=== PATIENT | male | born 1955 | race Asian ===

== ENCOUNTER 2016-03-11 18:36 | Inpatient (IN) | payer MEDICAID, OTHER ==
[~2016-03-11] VITALS: Ht 167.6 cm; Wt 74.2 kg
[2016-03-11] MEDS ORDERED: SOD CHLORIDE 0.9% 1,000 ML IV STA (18:51)
[2016-03-11] MEDS ORDERED: ASPIRIN 325 MG TAB PO STA (18:51)
[2016-03-11] MEDS ORDERED: AMIODARONE 900 MG in DEXTROSE 5% 482 ML IV SCH (19:00)
[2016-03-11] MEDS ORDERED: AMIODARONE 150MG/D5W BOLUS 100 ML IV ONE (19:00)
[2016-03-11 19:17] LABS: BASOPHILS % 0.4 % (0.0-2.0); EOSINOPHILS % 0.4 % (0.0-7.0); HEMATOCRIT 42.8 % (42.0-52.0); HEMOGLOBIN 14.7 g/dl (14.0-18.0); LYMPHOCYTES # 1.9 10^3/ul (0.8-2.9); LYMPHOCYTES % 33.6 % (15.0-51.0); MEAN CORPUSCULAR HEMOGLOBIN 30.9 pg (29.0-33.0); MEAN CORPUSCULAR HGB CONC 34.3 g/dl (32.0-37.0); MEAN PLATELET VOLUME 8.7 fl (7.4-10.4); MONOCYTE # 0.6 10^3/ul (0.3-0.9); MONOCYTES % 10.2 % (0.0-11.0); NEUTROPHIL # 3.1 10^3/ul (1.6-7.5); NEUTROPHILS % 55.4 % (39.0-77.0); PLATELET COUNT 140 10^3/UL (140-440); RED BLOOD COUNT 4.75 10^6/ul (4.70-6.10); UNCORRECTED WBC 5.7 10^3/ul (4.8-10.8); WHITE BLOOD COUNT 5.7 10^3/ul (4.8-10.8)
[2016-03-11 19:18] LABS: CONDITION 1
[2016-03-11 19:26] LABS: INR 0.95; PROTIME 12.7 Sec (12.2-14.2)
--- NOTE | 2016-03-11 19:28 | RADRPT ---
PROCEDURE: XR Chest. CLINICAL INDICATION: Chest pain. TECHNIQUE: AP portable views of the chest were obtained. COMPARISON: None available FINDINGS: There is mild cardiomegaly. There is mild atherosclerotic calcification of the thoracic aorta. The re is mild prominence of the central pulmonary vasculature. The peripheral vascular markings are di stinct. The lungs are clear without consolidation, mass or nodule. No signs of pleural fluid or pneu mothorax are seen. The osseous structures and soft tissues are unremarkable. IMPRESSION: 1. No evidence for active cardiopulmonary disease. 2. Mild cardiomegaly with central pulmonary vascular congestion. No evidence of interstitial pulmo nary edema. 3. Mild atherosclerotic calcification of the thoracic aorta. RPTAT: HGAS .Gumaro Fletcher MD, Date Time Electronically viewed and signed by .Gumaro Fletcher MD, on 03/11/2016 19:27 .S/
[2016-03-11 19:34] LABS: CREATININE 0.7 mg/dl (0.61-1.24)
[2016-03-11 19:35] LABS: CALCIUM 8.1 mg/dl (8.4-10.2)
[2016-03-11 19:46] LABS: TROPONIN-I 0.016 ng/ml (0.00-0.12)
[2016-03-11 19:51] LABS: PARTIAL THROMBOPLASTIN TIME 31.7 Sec (25.0-35.0)
--- NOTE | 2016-03-11 20:10 | ERA ---
ER Documentation Chief Complaint Date/Time DATE: 03/11/16 TIME: 20:07 Chief Complaint chest pain, SOB HPI Patient is a 60-year-old male who presents complaining of chest pain with shortness of breath. He states he has also been coughing and taking some over- the-counter cold medication which has not helped. He denies any fever or sputum production. He has noted that his heart feels like it is racing. That sensation started today and has been off and on all day long. Nothing seems to help this or make it worse. He denies any peripheral edema or calf pain. He denies any hemoptysis or sputum production, rhinorrhea or sore throat, chest trauma, otalgia, nausea, vomiting, or diarrhea. He has not been in contact with anyone who is ill. And he has not traveled out of the country. ROS All systems reviewed and are negative except as per history of present illness. Allergies Allergies: Coded Allergies: No Known Allergy (Unverified , 03/11/16) PMhx/Soc History of Surgery: Yes (R breast cyst biopsy) Anesthesia Reaction: No Hx Neurological Disorder: No Hx Respiratory Disorders: No Hx Cardiac Disorders: No Hx Psychiatric Problems: No Hx Miscellaneous Medical Probl: Yes (DM) Hx Alcohol Use: No Hx Substance Use: No Hx Tobacco Use: No Smoking Status: Never smoker FmHx Family History: No diabetes Physical Exam Vitals Vital Signs Date Time Temp Pulse Resp B/P Pulse Ox O2 Delivery O2 Flow Rate FiO2 03/11/16 19:00 Nasal Cannula 2 03/11/16 19:00 98.8 149 18 119/106 100 Nasal Cannula 2.0 03/11/16 18:46 99.0 152 18 118/100 100 Physical Exam Const: [] Head: Atraumatic Eyes: Normal Conjunctiva ENT: Normal External Ears, Nose and Mouth. Neck: Full range of motion..~ No meningismus. Resp: Clear to auscultation bilaterally Cardio: Regular rate and rhythm, no murmurs Abd: Soft, non tender, non distended. Normal bowel sounds Skin: No petechiae or rashes Back: No midline or flank tenderness Ext: No cyanosis, or edema Neur: Awake and alert Psych: Normal Mood and Affect Result Diagram: 03/11/16184903/11/161849 Results 24 hrs Laboratory Tests Test 03/11/16 18:49 03/11/16 18:50 Bedside Glucose 254mg/dL Activated Partial Thromboplast Time 31.7Sec Anion Gap 14 Basophils # 0.010^3/ul Basophils % 0.4% Blood Urea Nitrogen 18mg/dl Calcium Level 8.1mg/dl Carbon Dioxide Level 27mmol/L Chloride Level 100mmol/L Creatinine 0.70mg/dl Eosinophils # 0.010^3/ul Eosinophils % 0.4% Glucose Level 257mg/dl Hematocrit 42.8% Hemoglobin 14.7g/dl INR International Normalized Ratio 0.95 Lymphocytes # 1.910^3/ul Lymphocytes % 33.6% Mean Corpuscular Hemoglobin 30.9pg Mean Corpuscular Hemoglobin Concent 34.3g/dl Mean Corpuscular Volume 90.0fl Mean Platelet Volume 8.7fl Monocytes # 0.610^3/ul Monocytes % 10.2% Neutrophils # 3.110^3/ul Neutrophils % 55.4% Nucleated Red Blood Cells # 0.010^3/ul Nucleated Red Blood Cells % 0.0/100WBC Platelet Count 67760^3/UL Potassium Level 4.0mmol/L Prothrombin Time 12.7Sec Prothrombin Time Ratio 1.0 Red Blood Count 4.7510^6/ul Red Cell Distribution Width 13.0% Sodium Level 137mmol/L Troponin I 0.016ng/ml White Blood Count 5.710^3/ul Current Medications Medications (Trade) Dose Ordered Sig/Praveena Route PRN Reason Start Time Stop Time Status Last Admin Dose Admin Sodium Chloride (NS) 1,000 ml @ 1,000 mls/hr Q1H STAT IV 03/11/16 18:51 03/11/16 19:50 DC 03/11/16 19:03 Aspirin 325 mg 325 mg ONCE STAT PO 03/11/16 18:51 03/11/16 18:54 DC 03/11/16 19:03 Amiodarone HCl 100 ml @ 600 mls/hr ONCE ONCE IV 03/11/16 19:00 03/11/16 19:09 DC 03/11/16 18:57 Amiodarone HCl/ Dextrose (Cordarone Iv/ D5W) 500 ml @ 0 mls/hr Q0M IV 03/11/16 19:00 03/12/16 18:59 03/11/16 20:00 Procedures/MDM EKG: Rate/Rhythm: Atrial fibrillation with a rapid ventricular response of approximately 150 bpm QRS, ST, T-waves: No changes consistent w/ acute ischemia Impression: No evidence of ischemia 2008: Patient has received the bolus of amiodarone. He is currently being placed on a drip. He remains hemodynamically stable however his rate at this time is ranging between 120-140. I have a consult to the hospitalist for admission. Departure Diagnosis: Primary Impression: Atrial fibrillation with tachycardic ventricular rate Additional Impressions: Chest pain Qualified Code: R07.2 - Precordial pain Diabetes Qualified Code: E11.59 - Type 2 diabetes mellitus with other circulatory complication, unspecified terminal system operator insulin use status Condition: KIMANI Leigh Mar 11, 2016 20:10
[2016-03-11 21:00] VITALS: TEMP 98.7
[2016-03-11] MEDS ORDERED: ZOLPIDEM 5 MG TAB PO PRN (22:30)
[2016-03-11] MEDS ORDERED: ONDANSETRON 4 MG INJ IV PRN (22:30)
[2016-03-11] MEDS ORDERED: DILTIAZEM-D5W 125MG/125ML DRIP 125 ML IV SCH (22:30)
[2016-03-11] MEDS ORDERED: DOCUSATE SODIUM 100 MG CAP PO PRN (22:30)
[2016-03-11] MEDS ORDERED: morphine 2 MG INJ IV PRN (22:30)
[2016-03-11] MEDS ORDERED: NACL 0.9% 3 ML SYG IV SCH (22:30)
[2016-03-11] MEDS ORDERED: ACETAMINOPHEN 325 MG TAB PO PRN (22:30)
[2016-03-11] MEDS ORDERED: DILTIAZEM 25 MG INJ IV ONE (22:30)
[2016-03-11] MEDS ORDERED: HYDROCODONE/APAP (5/325) TAB PO PRN (22:30)
[2016-03-11] MEDS ORDERED: GLUCAGON 1 MG INJ IM PRN (23:00)
[2016-03-11] MEDS ORDERED: DEXTROSE 50% 50 ML SYRINGE IV PRN ×2 (23:00)
[2016-03-11] MEDS ORDERED: GLUCOSE GEL 15 GRAM TUBE PO PRN ×2 (23:00)
[2016-03-11] MEDS ORDERED: GLUCOSE GEL 15 GRAM TUBE BUCCAL PRN (23:00)
[2016-03-11 23:31] VITALS: Ht 167.6 cm; Wt 74.2 kg
[2016-03-11] MEDS: PROMETHAZINE/CODEINE 5ML CUP PO PRN (23:40)
[2016-03-11 23:43] VITALS: BP 122/69; PULSE 97; RESP 18
[2016-03-12] VITALS (11 sets, daily range): BP systolic 105–129; BP diastolic 68–78; PULSE 85–123; RESP 17–85
[2016-03-12 01:28] LABS: TROPONIN-I 0.018 ng/ml (0.00-0.12)
[2016-03-12 01:40] LABS: CK-MB 2.73 ng/ml (0.0-2.4)
[2016-03-12] MEDS: PROMETHAZINE/CODEINE 5ML CUP PO PRN ×3 (06:12→18:05)
[2016-03-12 06:17] LABS: BASOPHILS % 0.6 % (0.0-2.0); EOSINOPHILS % 0.3 % (0.0-7.0); HEMATOCRIT 39.2 % (42.0-52.0); HEMOGLOBIN 13.5 g/dl (14.0-18.0); LYMPHOCYTES # 1.5 10^3/ul (0.8-2.9); LYMPHOCYTES % 28.9 % (15.0-51.0); MEAN CORPUSCULAR HEMOGLOBIN 31.2 pg (29.0-33.0); MEAN CORPUSCULAR HGB CONC 34.4 g/dl (32.0-37.0); MEAN CORPUSCULAR VOLUME 90.7 fl (82.0-101.0); MEAN PLATELET VOLUME 8.7 fl (7.4-10.4); MONOCYTE # 0.6 10^3/ul (0.3-0.9); MONOCYTES % 11.9 % (0.0-11.0); NEUTROPHILS % 58.3 % (39.0-77.0); PLATELET COUNT 123 10^3/UL (140-440); RED BLOOD COUNT 4.32 10^6/ul (4.70-6.10); RED CELL DISTRIBUTION WIDTH 13.3 % (11.5-14.5); UNCORRECTED WBC 5.2 10^3/ul (4.8-10.8); WHITE BLOOD COUNT 5.2 10^3/ul (4.8-10.8)
[2016-03-12 06:34] LABS: CONDITION 1
--- NOTE | 2016-03-12 06:34 | HP ---
DATE OF ADMISSION: 03/11/2016 TIME: 9:00 p.m. CHIEF COMPLAINT: Chest pain with sense of palpitations. HISTORY OF PRESENT ILLNESS: The patient is a 60-year-old male with history of non-insulin dependent diabetes, otherwise no significant medical history. The patient presents with 6 months of feeling his heart racing and sense of palpitations, but it has never been that severe and typically resolves on its own. The patient states that today he started to notice severe chest discomfort and palpita tions as well as shortness of breath. The patient has been coughing for the past week now. He has taken some more sack-sli-ankeepp home cold medications which have not helped. He does report that o kyler the past 2 days, he does have some blood-tinged sputum. He denies any weight loss, night sweats and he has been vaccinated for TB in the past. The patient has no other complaints at this time. He states he has never been diagnosed with atrial fibrillation in the past. In the ED, the patient was noted to be in atrial fibrillation with RVR and was started on amiodarone drip and continues to complain of cough and chest discomfort at this time. PAST MEDICAL HISTORY: Cgi-gwefnjk-vfahxczrl diabetes. PAST SURGICAL HISTORY: He says he had a biopsy in the past. HOME MEDICATIONS: Diabetic medications, but it is unclear what type. ALLERGIES: NO KNOWN DRUG ALLERGIES. FAMILY HISTORY: Diabetes. SOCIAL HISTORY: Denies any alcohol, tobacco, or drug abuse. REVIEW OF SYSTEMS: A 12-point review of systems negative except as in the HPI. PHYSICAL EXAMINATION: VITAL SIGNS: Temperature is 98.7, pulse 107, respiratory rate is 24, BP is 100/78, saturation 100% on 2 liters. GENERAL: No acute distress, alert and oriented. HEENT: Normocephalic, atraumatic. LUNGS: Clear to auscultation. CARDIOVASCULAR: Tachycardic. ABDOMEN: Nondistended, nontender, soft. EXTREMITIES: No clubbing, cyanosis, or edema. LABORATORIES: CBC within normal limits. Chemistry within normal limits. Sugars slightly elevated to 254 ____57. Troponins are negative. INR is 0.98. DIAGNOSTICS: Chest x-ray shows no evidence of active disease. There is no central pulmonary vascul ar congestion, no evidence of interstitial pulmonary edema, ____atherosclerosis of the thoracic aor ta. EKG shows atrial fibrillation with RVR, no changes consistent with acute ischemia. ASSESSMENT AND PLAN: 1. Atrial fibrillation with rapid ventricular response. We will discontinue amiodarone and start t he patient on Cardizem. We will get a cardiology consultation. We will get a 2D echo. If the patien t has persistent atrial fibrillation in the a.m., then the patient will need to be started on an ant icoagulant such as Eliquis, as well as a p.o. beta vamsi or calcium channel vamsi. For now, we will give a bolus of Cardizem and we will maintain the patient on a Cardizem drip. 2. Persistent cough with hemoptysis. The patient has no night sweats, no weight loss, no fevers. He has been coughing for the past week now. He does have some intrapulmonary vascular congestion. The patient may have some decompensated heart failure causing him to have a persistent cough and now has developed irritation in his upper airway causing blood-tinged sputum. He has been vaccinated f or TB in the past and he has no recent travel history. No other symptoms of TB. We will follow up with an echo. We will give him Lasix IV as well as a ____ test for influenza. 3. Diabetes. We will treat with subcutaneous insulin while hospitalized. We will check an A1c and lipid panel. 4. Prophylaxis. Lovenox. Dictated By: HIRAM FONTANEZ MD BS/NTS Conf#: [id number] DID#: [id number]
[2016-03-12 06:48] LABS: POTASSIUM 4.3 mmol/L (3.5-5.1)
[2016-03-12 06:50] LABS: CREATININE 0.67 mg/dl (0.61-1.24)
[2016-03-12 06:51] LABS: ALBUMIN/GLOBULIN RATIO 0.96; BILIRUBIN,INDIRECT 1.2 mg/dl (0-1.1); BILIRUBIN,TOTAL 1.2 mg/dl (0.2-1.3); CALCIUM 7.6 mg/dl (8.4-10.2); PHOSPHORUS 3.3 mg/dl (2.5-4.9); TOTAL PROTEIN 6.1 g/dl (6.1-8.1)
[2016-03-12 06:52] LABS: CHOL/HDL RATIO 8.7 RATIO; MAGNESIUM 1.8 mg/dl (1.7-2.5)
[2016-03-12 07:02] LABS: T3 UPTAKE 33.8 % (23.5-40.5)
[2016-03-12 07:11] LABS: TROPONIN-I 0.013 ng/ml (0.00-0.12)
[2016-03-12 07:13] LABS: CK-MB 2.46 ng/ml (0.0-2.4)
[2016-03-12] MEDS: INSULIN ASPART [NOVOLOG] 3 ML PEN SC SCH ×7 (08:12→20:56)
[2016-03-12] MEDS ORDERED: FUROSEMIDE 40 MG INJ IV SCH ×2 (09:00→18:00)
[2016-03-12] MEDS: ASPIRIN (EC) 81 MG TAB PO SCH (09:03)
[2016-03-12] MEDS: ENOXAPARIN 40 MG/0.4 ML SYG SC SCH (09:13)
--- NOTE | 2016-03-12 11:52 | CONS ---
Date/Time of Note Date/Time of Note DATE: 03/12/16 TIME: 11:44 Assessment/Plan Assessment/Plan Chief Complaint/Hosp Course Afib with RVR: Rates controlled now on diltiazem drip at a rate of 5. Will switch to PO and titrate off drip. His CHADSVASC is 2 and he needs correction anticoagulation but will hold of now as he may need procedures Acute diastolic vs systolic heart failure: Grossly decompensated and needs diuresis. Could be caused by the afib with RVR or triggered it. Chest pain: with risk factors, concerning that he has underlying CAD. Ruled out for FL. Will check echo. If EF is low may consider cath (inpt vs outpt). If EF normal may need noninvasive evaluation first. DM HTN HL -increase to lasix 40mg IV BID -add diltiazem 30mg PO q6h and titrate off drip (if EF is low will need to switch to coreg or bisoprolol) -continue ASA, statin -check echo -hold on anticoagulation until further information is obtained Problems: Consultation Date/Type/Reason Admit Date/Time Mar 11, 2016 at 20:23 Date of Consultation: Mar 12, 2016 Type of Consultation: Cardiology Reason for Consultation Afib with RVR Referring Provider: HIRAM FONTANEZ Hx of Present Illness 60 yo M with a h/o DM, HTN, HL, who presented with palpitations, chest pain, SOB and was found to have afib with RVR. The patient notes that over the past 3 months he has been having intermittent palpitations associated with chest pain and SOB. He also notes that he cant walk more than 10 ft without SOB and sometimes chest pain. He has been coughing as well. He notes that now he is asymptomatic after his HR improved. No prior FL or heart disease per pt. Does not smoke. No family h/o CAD per HPI Past Medical History per HPI Social History Smoking Status: Never smoker Exam/Review of Systems Vital Signs Vitals Vital Signs Date Time Temp Pulse Resp B/P Pulse Ox O2 Delivery O2 Flow Rate FiO2 03/12/16 11:38 98.1 75 18 105/74 97 03/11/16 23:45 Nasal Cannula 3.0 Intake and Output 03/11/16 03/11/16 03/12/16 15:00 23:00 07:00 Intake Total 400 ml Balance 400 ml Exam Constitutional: alert, oriented Psych: no complaints Head: atraumatic, normocephalic Neck: jvd (12cm) Respiratory: crackles/rales, diminished breath sounds, No clear to auscultation Cardiovascular: edema (trace), systolic murmur (2/6), No regular rate and rhythm Gastrointestinal: non-tender, soft Neurological: nl mental status, nl speech Results Result Diagram: 03/12/16 0531 03/12/16 0531 Results 24 hrs Laboratory Tests Test 03/11/16 18:49 03/11/16 18:50 03/12/16 00:53 03/12/16 05:31 Bedside Glucose 254 H Activated Partial Thromboplast Time 31.7 Anion Gap 14 12 B-Type Natriuretic Peptide 1340 H Basophils # 0.0 0.0 Basophils % 0.4 0.6 Blood Urea Nitrogen 18 16 Calcium Level 8.1 L 7.6 L Carbon Dioxide Level 27 28 Chloride Level 100 101 Creatinine 0.70 0.67 Eosinophils # 0.0 0.0 Eosinophils % 0.4 0.3 Glucose Level 257 H 241 H Hematocrit 42.8 39.2 L Hemoglobin 14.7 13.5 L INR International Normalized Ratio 0.95 Lymphocytes # 1.9 1.5 Lymphocytes % 33.6 28.9 Mean Corpuscular Hemoglobin 30.9 31.2 Mean Corpuscular Hemoglobin Concent 34.3 34.4 Mean Corpuscular Volume 90.0 90.7 Mean Platelet Volume 8.7 8.7 Monocytes # 0.6 0.6 Monocytes % 10.2 11.9 H Neutrophils # 3.1 3.0 Neutrophils % 55.4 58.3 Nucleated Red Blood Cells # 0.0 0.0 Nucleated Red Blood Cells % 0.0 0.0 Platelet Count 140 123 L Potassium Level 4.0 4.3 Prothrombin Time 12.7 Prothrombin Time Ratio 1.0 Red Blood Count 4.75 4.32 L Red Cell Distribution Width 13.0 13.3 Sodium Level 137 137 Troponin I 0.016 0.018 0.013 White Blood Count 5.7 5.2 Creatine Kinase 775 H 654 H Creatine Kinase Index 0.4 0.4 Creatinine Kinase MB (Mass) 2.73 H 2.46 H Alanine Aminotransferase (ALT/SGPT) 117 H Albumin 3.0 L Albumin/Globulin Ratio 0.96 Alkaline Phosphatase 101 Aspartate Amino Transf (AST/SGOT) 121 H Cholesterol Level 158 Cholesterol/HDL Ratio 8.7 Direct Bilirubin 0.00 Free Thyroxine Index 4.60 H Globulin 3.10 HDL Cholesterol 18 L Hemoglobin A1c 10.8 H Indirect Bilirubin 1.2 H LDL Cholesterol, Calculated 114 Magnesium Level 1.8 Phosphorus Level 3.3 Thyroxine (T4) 13.6 H Total Bilirubin 1.2 Total Protein 6.1 Triglycerides Level 131 Triiodothyronine (T3) Uptake 33.8 Test 03/12/16 08:04 Bedside Glucose 208 Medications Medications Current Medications Ondansetron HCl (Zofran Inj) 4 mg Q6H PRN IV NAUSEA AND/OR VOMITING; Start 03/11 at 22:30 Acetaminophen (Tylenol Tab) 650 mg Q6H PRN PO PAIN LEVEL 1-3 OR FEVER; Start at 22:30 Acetaminophen/ Hydrocodone Bitart ([place] (5/325)) 1 tab Q6H PRN PO MODERATE PAIN LEVEL 4-6; Start 03/11/16 at 22:30 Morphine Sulfate (morphine) 2 mg Q4H PRN IV SEVERE PAIN LEVEL 7-10; Start at 22:30 Docusate Sodium (Colace) 100 mg Q12H PRN PO CONSTIPATION; Start 03/11/16 at 22: 30 Zolpidem Tartrate (Ambien) 5 mg QHS PRN PO SLEEP; Start 03/11/16 at 22:30 Enoxaparin Sodium 40 mg 40 mg DAILY SC Last administered on 03/12/16 09:13; Admin Dose 40 MG; Start 03/12/16 at 09:00 Diltiazem HCl (Cardizem-D5W 125 Mg/125 ml Drip) 125 ml @ 5 mls/hr Q24H IV Last administered on 03/11/16 22:41; Admin Dose 5 MLS/HR; Start 03/11/16 at 22:30 Promethazine HCl/ Codeine (Phenergan/ Codeine) 5 ml Q4H PRN PO COUGH Last administered on 03/12/16 11:08; Admin Dose 5 ML; Start 03/11/16 at 22:30 Aspirin (Halfprin) 81 mg DAILY PO Last administered on 03/12/16 09:03; Admin Dose 81 MG; Start 03/12/16 at 09:00 Insulin Glargine (Lantus) 14 unit HS SC ; Start 03/12/16 at 21:00 Miscellaneous Information 1 ea NOTE XX ; Start 03/11/16 at 23:00 Glucose (Glutose) 15 gm Q15M PRN PO DECREASED GLUCOSE; Start 03/11/16 at 23:00 Glucose (Glutose) 22.5 gm Q15M PRN PO DECREASED GLUCOSE; Start 03/11/16 at 23:00 Dextrose (D50w Syringe) 25 ml Q15M PRN IV DECREASED GLUCOSE; Start 03/11/16 at 23:00 Dextrose (D50w Syringe) 50 ml Q15M PRN IV DECREASED GLUCOSE; Start 03/11/16 at 23:00 Glucagon (Glucagen) 1 mg Q15M PRN IM DECREASED GLUCOSE; Start 03/11/16 at 23:00 Glucose (Glutose) 15 gm Q15M PRN BUCCAL DECREASED GLUCOSE; Start 03/11/16 at 23: 00 Diltiazem HCl (Cardizem) 30 mg Q6 PO ; Start 03/12/16 at 12:00 Furosemide (Lasix) 40 mg BID IV ; Start 03/12/16 at 21:00; Status JENNIFER ALFARO Mar 12, 2016 11:52
[2016-03-12] MEDS: DILTIAZEM 30 MG TAB PO SCH ×2 (12:53→18:04)
[2016-03-12 14:46] LABS: HAAIG REFLEX REFLEX FILED
--- NOTE | 2016-03-12 14:53 | PN ---
Date/Time of Note Date/Time of Note DATE: 03/12/16 TIME: 14:47 Assessment/Plan VTE Prophylaxis VTE Prophylaxis Intervention: LMWH Lines/Catheters IV Catheter Type (from [facility]): Peripheral IV Assessment/Plan Chief Complaint/Hosp Course Assessment and plan 1. Atrial fibrillation with rapid ventricular response. Patient currently on Cardizem drip. Cardiologists following. Awaiting echocardiogram results. Continue on beta vamsi and calcium channel vamsi. 2. Reported cough with hemoptysis. No further reports of hemoptysis. Continue on antitussives as needed. 3. type 2 diabetes. A1c is pending. Continue on insulin regimen for now. DVT prophylaxis: Lovenox Disposition and plan: Continue on Cardizem drip. Transition to oral per cardiology. Continue telemetry monitoring. Discharge him when medically stable and cleared by consultants Discussed plan of care with Problems: Subjective 24 Hr Interval Summary Free Text/Dictation Comfortable at this time. No apparent distress Exam/Review of Systems Vital Signs Vitals Vital Signs Date Time Temp Pulse Resp B/P Pulse Ox O2 Delivery O2 Flow Rate FiO2 03/12/16 12:18 116 03/12/16 11:38 98.1 18 105/74 97 03/12/16 08:00 Nasal Cannula 2.0 Intake and Output 03/11/16 03/11/16 03/12/16 15:00 23:00 07:00 Intake Total 400 ml Balance 400 ml Exam General: No acute signs or symptoms of distress Eyes: pupils equal round, Anicteric sclera Neck: Supple nontender, no JVD Cardiac: irregular rhythm Pulmonary: No coarse rhonchi or breathing auscultated GI: Abdomen soft nontender nondistended, bowel sounds active Extremities: No edema bilateral lower extremities Skin: Clean dry and intact Neurologic: Alert to person place and time and situation Results Result Diagram: 03/12/16 0531 03/12/16 0531 Results 24 hrs Laboratory Tests Test 03/11/16 18:49 03/11/16 18:50 03/12/16 00:53 03/12/16 05:31 Bedside Glucose 254 H Activated Partial Thromboplast Time 31.7 Anion Gap 14 12 B-Type Natriuretic Peptide 1340 H Basophils # 0.0 0.0 Basophils % 0.4 0.6 Blood Urea Nitrogen 18 16 Calcium Level 8.1 L 7.6 L Carbon Dioxide Level 27 28 Chloride Level 100 101 Creatinine 0.70 0.67 Eosinophils # 0.0 0.0 Eosinophils % 0.4 0.3 Glucose Level 257 H 241 H Hematocrit 42.8 39.2 L Hemoglobin 14.7 13.5 L INR International Normalized Ratio 0.95 Lymphocytes # 1.9 1.5 Lymphocytes % 33.6 28.9 Mean Corpuscular Hemoglobin 30.9 31.2 Mean Corpuscular Hemoglobin Concent 34.3 34.4 Mean Corpuscular Volume 90.0 90.7 Mean Platelet Volume 8.7 8.7 Monocytes # 0.6 0.6 Monocytes % 10.2 11.9 H Neutrophils # 3.1 3.0 Neutrophils % 55.4 58.3 Nucleated Red Blood Cells # 0.0 0.0 Nucleated Red Blood Cells % 0.0 0.0 Platelet Count 140 123 L Potassium Level 4.0 4.3 Prothrombin Time 12.7 Prothrombin Time Ratio 1.0 Red Blood Count 4.75 4.32 L Red Cell Distribution Width 13.0 13.3 Sodium Level 137 137 Troponin I 0.016 0.018 0.013 White Blood Count 5.7 5.2 Creatine Kinase 775 H 654 H Creatine Kinase Index 0.4 0.4 Creatinine Kinase MB (Mass) 2.73 H 2.46 H Alanine Aminotransferase (ALT/SGPT) 117 H Albumin 3.0 L Albumin/Globulin Ratio 0.96 Alkaline Phosphatase 101 Aspartate Amino Transf (AST/SGOT) 121 H Cholesterol Level 158 Cholesterol/HDL Ratio 8.7 Direct Bilirubin 0.00 Free Thyroxine Index 4.60 H Globulin 3.10 HDL Cholesterol 18 L Hemoglobin A1c 10.8 H Indirect Bilirubin 1.2 H LDL Cholesterol, Calculated 114 Magnesium Level 1.8 Phosphorus Level 3.3 Thyroxine (T4) 13.6 H Total Bilirubin 1.2 Total Protein 6.1 Triglycerides Level 131 Triiodothyronine (T3) Uptake 33.8 Test 03/12/16 08:04 03/12/16 12:30 03/12/16 14:35 Bedside Glucose 208 215 Hepatitis B Core Total Antibody Pending Hepatitis B Surface Antigen Pending Hepatitis C Antibody Pending Medications Medications Current Medications Ondansetron HCl (Zofran Inj) 4 mg Q6H PRN IV NAUSEA AND/OR VOMITING; Start 03/11 at 22:30 Acetaminophen (Tylenol Tab) 650 mg Q6H PRN PO PAIN LEVEL 1-3 OR FEVER; Start at 22:30 Acetaminophen/ Hydrocodone Bitart ([place] (5/325)) 1 tab Q6H PRN PO MODERATE PAIN LEVEL 4-6; Start 03/11/16 at 22:30 Morphine Sulfate (morphine) 2 mg Q4H PRN IV SEVERE PAIN LEVEL 7-10; Start at 22:30 Docusate Sodium (Colace) 100 mg Q12H PRN PO CONSTIPATION; Start 03/11/16 at 22: 30 Zolpidem Tartrate (Ambien) 5 mg QHS PRN PO SLEEP; Start 03/11/16 at 22:30 Enoxaparin Sodium 40 mg 40 mg DAILY SC Last administered on 03/12/16 09:13; Admin Dose 40 MG; Start 03/12/16 at 09:00 Diltiazem HCl (Cardizem-D5W 125 Mg/125 ml Drip) 125 ml @ 5 mls/hr Q24H IV Last administered on 03/11/16 22:41; Admin Dose 5 MLS/HR; Start 03/11/16 at 22:30 Promethazine HCl/ Codeine (Phenergan/ Codeine) 5 ml Q4H PRN PO COUGH Last administered on 03/12/16 11:08; Admin Dose 5 ML; Start 03/11/16 at 22:30 Aspirin (Halfprin) 81 mg DAILY PO Last administered on 03/12/16 09:03; Admin Dose 81 MG; Start 03/12/16 at 09:00 Miscellaneous Information 1 ea NOTE XX ; Start 03/11/16 at 23:00 Glucose (Glutose) 15 gm Q15M PRN PO DECREASED GLUCOSE; Start 03/11/16 at 23:00 Glucose (Glutose) 22.5 gm Q15M PRN PO DECREASED GLUCOSE; Start 03/11/16 at 23:00 Dextrose (D50w Syringe) 25 ml Q15M PRN IV DECREASED GLUCOSE; Start 03/11/16 at 23:00 Dextrose (D50w Syringe) 50 ml Q15M PRN IV DECREASED GLUCOSE; Start 03/11/16 at 23:00 Glucagon (Glucagen) 1 mg Q15M PRN IM DECREASED GLUCOSE; Start 03/11/16 at 23:00 Glucose (Glutose) 15 gm Q15M PRN BUCCAL DECREASED GLUCOSE; Start 03/11/16 at 23: 00 Diltiazem HCl (Cardizem) 30 mg Q6 PO Last administered on 03/12/16t 12:53; Admin Dose 30 MG; Start 03/12/16 at 12:00 Insulin Glargine (Lantus) 20 unit HS SC ; Start 03/12/16 at 21:00 VADIM GRAVES Mar 12, 2016 14:53
[2016-03-12 17:28] LABS: HEPATITIS B CORE ANTIBODY NEGATIVE (NEGATIVE)
[2016-03-12] MEDS: FUROSEMIDE 40 MG INJ IV SCH (20:53)
[2016-03-12] MEDS: INSULIN GLARGINE [LANtus] 3 ML PEN SC SCH (20:54)
[2016-03-12] MEDS ORDERED: INSULIN GLARGINE [LANtus] 3 ML PEN SC SCH (21:00)
[2016-03-13] VITALS (16 sets, daily range): BP systolic 96–122; BP diastolic 64–82; PULSE 78–119; RESP 16–20
[2016-03-13] MEDS: DILTIAZEM 30 MG TAB PO SCH ×4 (00:30→17:39)
[2016-03-13] MEDS: PROMETHAZINE/CODEINE 5ML CUP PO PRN ×3 (05:39→20:56)
[2016-03-13] MEDS: FUROSEMIDE 40 MG INJ IV SCH ×2 (05:39→18:23)
[2016-03-13 06:13] LABS: BASOPHILS % 0.5 % (0.0-2.0); EOSINOPHILS % 0.3 % (0.0-7.0); HEMATOCRIT 42.2 % (42.0-52.0); HEMOGLOBIN 14.5 g/dl (14.0-18.0); LYMPHOCYTES # 2.1 10^3/ul (0.8-2.9); LYMPHOCYTES % 25.6 % (15.0-51.0); MEAN CORPUSCULAR HEMOGLOBIN 31.2 pg (29.0-33.0); MEAN CORPUSCULAR HGB CONC 34.3 g/dl (32.0-37.0); MEAN PLATELET VOLUME 8.6 fl (7.4-10.4); MONOCYTE # 1.1 10^3/ul (0.3-0.9); MONOCYTES % 13.2 % (0.0-11.0); NEUTROPHIL # 4.9 10^3/ul (1.6-7.5); NEUTROPHILS % 60.4 % (39.0-77.0); PLATELET COUNT 158 10^3/UL (140-440); RED BLOOD COUNT 4.64 10^6/ul (4.70-6.10); RED CELL DISTRIBUTION WIDTH 12.9 % (11.5-14.5); UNCORRECTED WBC 8.1 10^3/ul (4.8-10.8); WHITE BLOOD COUNT 8.1 10^3/ul (4.8-10.8)
[2016-03-13 06:18] LABS: CONDITION 1
[2016-03-13 06:44] LABS: ALBUMIN 3.6 g/dl (3.3-4.9)
[2016-03-13 06:45] LABS: POTASSIUM 3.2 mmol/L (3.5-5.1)
[2016-03-13 06:47] LABS: BILIRUBIN,INDIRECT 1.3 mg/dl (0-1.1); BILIRUBIN,TOTAL 1.3 mg/dl (0.2-1.3); CREATININE 0.75 mg/dl (0.61-1.24); TOTAL PROTEIN 7.5 g/dl (6.1-8.1)
[2016-03-13 06:48] LABS: CALCIUM 8.8 mg/dl (8.4-10.2)
[2016-03-13] MEDS: INSULIN ASPART [NOVOLOG] 3 ML PEN SC SCH ×7 (07:51→20:41)
[2016-03-13] MEDS: ASPIRIN (EC) 81 MG TAB PO SCH (08:29)
[2016-03-13] MEDS: ENOXAPARIN 40 MG/0.4 ML SYG SC SCH (08:34)
--- NOTE | 2016-03-13 09:39 | RADRPT ---
Echocardiogram Report Patient Name: MCKENNA LOVE Gender: Male Date: 1955 Study Date: 12-Mar-2016 Boat Tester: CARISSA Location: E Ref. Physician: HIRAM FONTANEZ Quality: Adequate Procedures: Transthoracic echocardiogram with complete 2D, M-Mode, and Doppler examination. Indications: Congestive Heart Failure. 2D/M Mode Doppler Measurement Value Normal Ranges Measurement Value Normal Ranges AoR Diam MM 3.6 cm AV Peak Thanh 1.0 m/sec ACS MM 1.9 cm AV Peak PG 3.9 mmHg LVIDd 2D 5.8 3.5 - 5.6 cm LVOT Peak Thanh 0.6 m/sec LVIDs 2D 5.2 2.1 - 4.1 cm LVOT Peak PG 1.3 mmHg LVPWd 2D 0.9 0.6 - 1.1 cm MV E Peak Thanh 1.3 m/sec IVSd 2D 1.1 0.6 - 1.1 cm MV A Peak Thanh 0.3 m/sec EDV 2D 168.7 cm3 MV E/A 4.5 ESV 2D 140.9 cm3 MV Decel Time 104 msec LA Dimen 2D 4.1 2.3 - 4.0 cm MV Decel Garden 12 MV E/A 4.5 TR Peak Thanh 2.7 m/sec TR Peak PG 29.5 mmHg PV Peak Thanh 0.6 m/sec PV Peak PG 1.0 mmHg RVSP 39.5 mmHg Findings Left Ventricle: Normal left ventricular wall thickness. Mild enlargement of left ventricle cavity. Severe global left ventricular systolic dysfunction. Severe left ventricular systolic dysfunction. Ejection fraction is visually estimated at 25 %. Right Ventricle: Normal right ventricular size. Normal right ventricular systolic function. Left Atrium: There is severe enlargement of left atrium. Right Atrium: There is moderate enlargement of right atrium. Atrial Septum: Normal atrial septum. Mitral Valve: Mild mitral annular calcification. Mild to moderate mitral valve regurgitation. Aortic Valve: No significant aortic stenosis or insufficiency. Normal trileaflet aortic valve structure. Tricuspid Valve: Normal appearance of the tricuspid valve. Estimated peak PA systolic pressure 45 mmHg. There is moderate tricuspid regurgitation. Pulmonic Valve: Normal pulmonic valve appearance. There is trace to mild pulmonic regurgitation. Pericardium: Normal pericardium with no significant pericardial effusion. Aorta: Normal aortic root. IVC: Dilated IVC without respiratory collapse consistent with elevated right atrial pressure. Pulmonary Artery: Normal pulmonary artery size. Conclusions 1.Normal left ventricular wall thickness. Mild enlargement of left ventricle cavity. Severe global left ventricular systolic dysfunction. Severe left ventricular systolic dysfunction. Ejection fraction is visually estimated at 25 %. 2.Mild to moderate mitral valve regurgitation. 3.Moderate tricuspid regurgitation. 4.Estimated peak PA systolic pressure 45 mmHg based on RA pressure of 15 mmHg. Electronically Signed By: Donald Barker 13-Mar-2016 09:38:50 -0800 Patient Name: MCKENNA LOVE Study Date: 12-Mar-[id number]
[2016-03-13] MEDS ORDERED: POTASSIUM CHLORIDE (SR) 20 MEQ TAB PO STA (10:08)
[2016-03-13] MEDS ORDERED: METF500T4 PO (10:34)
[2016-03-13] MEDS ORDERED: ASPI81TA3 PO (10:34)
[2016-03-13] MEDS ORDERED: METF-382 PO (10:42)
[2016-03-13] MEDS ORDERED: POTASSIUM CHLORIDE 20 MEQ POWDER FOR ORAL SOLN PO ONE (12:00)
--- NOTE | 2016-03-13 12:02 | CONS ---
Date/Time of Note Date/Time of Note DATE: 03/13/16 TIME: 11:56 Assessment/Plan Assessment/Plan Chief Complaint/Hosp Course Afib with RVR: Rates now controlled. Will switch diltiazem to bisoprolol due to low EF. Acute diastolic vs systolic heart failure: EF 25%, severe global hypokinesis. Better with diuresis but still decompensated. Chest pain: with risk factors, concerning that he has underlying CAD. Ruled out for [place].Echo with EF 25%. He will need cardiac cath for CAD eval (inpt vs outpt) DM HTN HL -continue lasix 40mg IV BID -switch diltiazem to bisoprolol 5mg daily -continue ASA, statin -if pt leaves, should go AMA as still decompensated and needs diuresis and medical optimization -if does go AMA, please try to arrange that pt has cardiac meds if possible. Should go with current doses of meds but lasix should be 40mg PO daily, add KCL supplement, start Eliquis 5mg BID) -will follow if does not sign out AMA Problems: Consultation Date/Type/Reason Admit Date/Time Mar 11, 2016 at 20:23 Initial Consult Date 03/12/16 Type of Consultation: Cardiology Referring Provider: HIRAM FONTANEZ 24 HR Interval Summary Free Text/Dictation No o/n events. Has been ambulating without symptoms. Wants to leave today as it is his niece's wedding. Exam/Review of Systems Vital Signs Vitals Vital Signs Date Time Temp Pulse Resp B/P Pulse Ox O2 Delivery O2 Flow Rate FiO2 03/13/16 11:29 97.8 100 18 114/68 100 Room Air 03/12/16 08:00 2.0 Intake and Output 03/12/16 03/12/16 03/13/16 15:00 23:00 07:00 Intake Total 950 ml 500 ml Balance 950 ml 500 ml Exam Constitutional: alert, oriented Psych: no complaints Head: atraumatic, normocephalic Neck: jvd (9cm) Respiratory: crackles/rales, No clear to auscultation Cardiovascular: edema (1+), No regular rate and rhythm, No systolic murmur Gastrointestinal: non-tender, soft Neurological: nl mental status, nl speech Results Result Diagram: 1/8/17 0520 1/8/17 0520 Results 24 hrs Laboratory Tests Test 03/12/16 12:30 03/12/16 14:35 03/12/16 17:33 03/12/16 20:36 Bedside Glucose 215 102 174 Hepatitis B Core Total Antibody NEGATIVE Hepatitis B Surface Antigen NEGATIVE Hepatitis C Antibody NEGATIVE Test 03/13/16 05:20 03/13/16 07:49 03/13/16 11:27 Alanine Aminotransferase (ALT/SGPT) 123 H Albumin 3.6 Alkaline Phosphatase 112 Anion Gap 15 Aspartate Amino Transf (AST/SGOT) 101 H Basophils # 0.0 Basophils % 0.5 Blood Urea Nitrogen 16 Calcium Level 8.8 Carbon Dioxide Level 32 H Chloride Level 97 Creatinine 0.75 Direct Bilirubin 0.00 Eosinophils # 0.0 Eosinophils % 0.3 Glucose Level 96 # Hematocrit 42.2 Hemoglobin 14.5 Indirect Bilirubin 1.3 H Lymphocytes # 2.1 Lymphocytes % 25.6 Mean Corpuscular Hemoglobin 31.2 Mean Corpuscular Hemoglobin Concent 34.3 Mean Corpuscular Volume 91.0 Mean Platelet Volume 8.6 Monocytes # 1.1 H Monocytes % 13.2 H Neutrophils # 4.9 Neutrophils % 60.4 Nucleated Red Blood Cells # 0.0 Nucleated Red Blood Cells % 0.0 Platelet Count 158 # Potassium Level 3.2 L Red Blood Count 4.64 L Red Cell Distribution Width 12.9 Sodium Level 141 Total Bilirubin 1.3 Total Protein 7.5 # White Blood Count 8.1 # Bedside Glucose 221 H 108 Medications Medications Current Medications Ondansetron HCl (Zofran Inj) 4 mg Q6H PRN IV NAUSEA AND/OR VOMITING; Start 03/11 at 22:30 Acetaminophen (Tylenol Tab) 650 mg Q6H PRN PO PAIN LEVEL 1-3 OR FEVER; Start at 22:30 Acetaminophen/ Hydrocodone Bitart ([place] (5/325)) 1 tab Q6H PRN PO MODERATE PAIN LEVEL 4-6; Start 03/11/16 at 22:30 Morphine Sulfate (morphine) 2 mg Q4H PRN IV SEVERE PAIN LEVEL 7-10; Start at 22:30 Docusate Sodium (Colace) 100 mg Q12H PRN PO CONSTIPATION; Start 03/11/16 at 22: 30 Zolpidem Tartrate (Ambien) 5 mg QHS PRN PO SLEEP; Start 03/11/16 at 22:30 Enoxaparin Sodium (Lovenox) 40 mg DAILY SC Last administered on 03/13/16 08:34 ; Admin Dose 40 MG; Start 03/12/16 at 09:00 Promethazine HCl/ Codeine (Phenergan/ Codeine) 5 ml Q4H PRN PO COUGH Last administered on 03/13/16 05:39; Admin Dose 5 ML; Start 03/11/16 at 22:30 Aspirin (Halfprin) 81 mg DAILY PO Last administered on 03/13/16 08:29; Admin Dose 81 MG; Start 03/12/16 at 09:00 Miscellaneous Information 1 ea NOTE XX ; Start 03/11/16 at 23:00 Glucose (Glutose) 15 gm Q15M PRN PO DECREASED GLUCOSE; Start 03/11/16 at 23:00 Glucose (Glutose) 22.5 gm Q15M PRN PO DECREASED GLUCOSE; Start 03/11/16 at 23:00 Dextrose (D50w Syringe) 25 ml Q15M PRN IV DECREASED GLUCOSE; Start 03/11/16 at 23:00 Dextrose (D50w Syringe) 50 ml Q15M PRN IV DECREASED GLUCOSE; Start 03/11/16 at 23:00 Glucagon (Glucagen) 1 mg Q15M PRN IM DECREASED GLUCOSE; Start 03/11/16 at 23:00 Glucose (Glutose) 15 gm Q15M PRN BUCCAL DECREASED GLUCOSE; Start 03/11/16 at 23: 00 Diltiazem HCl (Cardizem) 30 mg Q6 PO Last administered on 03/13/16 11:30; Admin Dose 30 MG; Start 03/12/16 at 12:00 Insulin Glargine (Lantus) 20 unit HS SC Last administered on 03/12/16 20:54; Admin Dose 20 UNIT; Start 03/12/16 at 21:00 JENNIFER HINES Mar 13, 2016 12:02
[2016-03-13] MEDS ORDERED: ASPI-664 PO (12:21)
[2016-03-13] MEDS ORDERED: BISO5TAB21 PO (12:21)
[2016-03-13] MEDS ORDERED: LISI-313 PO (12:21)
[2016-03-13] MEDS ORDERED: DILT30TA30 PO (12:21)
[2016-03-13] MEDS ORDERED: FURO40TA PO (12:21)
[2016-03-13] MEDS: BISOPROLOL 5 MG TAB PO SCH (15:53)
[2016-03-13] MEDS: INSULIN GLARGINE [LANtus] 3 ML PEN SC SCH (20:45)
[2016-03-14] VITALS (12 sets, daily range): BP systolic 87–121; BP diastolic 63–78; PULSE 96–187; RESP 17–18
[2016-03-14] MEDS: PROMETHAZINE/CODEINE 5ML CUP PO PRN ×3 (04:19→19:55)
[2016-03-14] MEDS: FUROSEMIDE 40 MG INJ IV SCH ×2 (05:45→18:00)
[2016-03-14] MEDS: DILTIAZEM 30 MG TAB PO SCH ×4 (05:46→18:00)
[2016-03-14 06:07] LABS: POTASSIUM 3.9 mmol/L (3.5-5.1)
[2016-03-14 06:09] LABS: CREATININE 0.68 mg/dl (0.61-1.24)
[2016-03-14 06:10] LABS: CALCIUM 9.1 mg/dl (8.4-10.2)
[2016-03-14 06:14] LABS: BASOPHILS % 0.1 % (0.0-2.0); EOSINOPHILS # 0.1 10^3/ul (0.0-0.5); EOSINOPHILS % 0.8 % (0.0-7.0); HEMATOCRIT 39.3 % (42.0-52.0); HEMOGLOBIN 13.6 g/dl (14.0-18.0); LYMPHOCYTES # 1.3 10^3/ul (0.8-2.9); LYMPHOCYTES % 18.4 % (15.0-51.0); MEAN CORPUSCULAR HEMOGLOBIN 31.2 pg (29.0-33.0); MEAN CORPUSCULAR HGB CONC 34.7 g/dl (32.0-37.0); MEAN CORPUSCULAR VOLUME 89.9 fl (82.0-101.0); MEAN PLATELET VOLUME 8.4 fl (7.4-10.4); MONOCYTE # 1.1 10^3/ul (0.3-0.9); MONOCYTES % 15.4 % (0.0-11.0); NEUTROPHIL # 4.6 10^3/ul (1.6-7.5); NEUTROPHILS % 65.3 % (39.0-77.0); PLATELET COUNT 179 10^3/UL (140-440); RED BLOOD COUNT 4.37 10^6/ul (4.70-6.10); RED CELL DISTRIBUTION WIDTH 12.8 % (11.5-14.5)
[2016-03-14 06:23] LABS: CONDITION 1; LH ANALYZER COMMENTS 1
[2016-03-14] MEDS ORDERED: LISINOPRIL 5 MG TAB PO SCH (09:00)
[2016-03-14] MEDS: BISOPROLOL 5 MG TAB PO SCH (09:00)
[2016-03-14] MEDS: INSULIN ASPART [NOVOLOG] 3 ML PEN SC SCH ×7 (09:02→21:00)
[2016-03-14] MEDS ORDERED: FURO40TA PO (09:04)
[2016-03-14] MEDS: ENOXAPARIN 40 MG/0.4 ML SYG SC SCH (09:04)
[2016-03-14] MEDS: ASPIRIN (EC) 81 MG TAB PO SCH (09:04)
[2016-03-14] MEDS ORDERED: POTA20TA96 PO (09:04)
[2016-03-14] MEDS ORDERED: APIX5TAB PO (09:04)
--- NOTE | 2016-03-14 12:26 | PN ---
Date/Time of Note Date/Time of Note DATE: 03/14/16 TIME: 12:23 Assessment/Plan VTE Prophylaxis VTE Prophylaxis Intervention: LMWH Lines/Catheters [facility] Urinary Cath still in place: No Assessment/Plan Chief Complaint/Hosp Course Assessment and plan 1. Atrial fibrillation with rapid ventricular response. [place] following. echo with EF: 25%. Continue on beta vamsi and calcium channel vamsi. 2. Reported cough with hemoptysis. No further reports of hemoptysis. Continue on antitussives as needed. 3. type 2 diabetes. . Continue on insulin regimen for now. 4. Essential hypertension. cont on antihypertensives and adjust asneeded DVT prophylaxis: Lovenox Disposition and plan: cont cardizem. cont diuresis. d/c when medically stable and cleared by consultants Discussed plan of care with Problems: Subjective 24 Hr Interval Summary Free Text/Dictation no chest pain reported. appears comfortable at present Exam/Review of Systems Vital Signs Vitals Vital Signs Date Time Temp Pulse Resp B/P Pulse Ox O2 Delivery O2 Flow Rate FiO2 03/14/16 12:20 102 03/14/16 11:36 98.3 18 87/66 100 03/13/16 21:42 Nasal Cannula 03/12/16 08:00 2.0 Intake and Output 03/13/16 03/13/16 03/14/16 15:00 23:00 07:00 Intake Total 750 ml 300 ml Balance 750 ml 300 ml Exam General: No acute signs or symptoms of distress Eyes: pupils equal round, Anicteric sclera Neck: Supple nontender, no JVD Cardiac: irregular rhythm Pulmonary: No coarse rhonchi or breathing auscultated GI: Abdomen soft nontender nondistended, bowel sounds active Extremities: No edema bilateral lower extremities Skin: Clean dry and intact Neurologic: Alert to person place and time and situation Results Result Diagram: 03/14/16 0523 03/14/16 0523 Results 24 hrs Laboratory Tests Test 03/13/16 17:37 03/13/16 20:36 03/14/16 05:23 03/14/16 07:57 Bedside Glucose 164 171 144 Anion Gap 16 Basophils # 0.0 Basophils % 0.1 Blood Urea Nitrogen 16 Calcium Level 9.1 Carbon Dioxide Level 30 Chloride Level 98 Creatinine 0.68 Eosinophils # 0.1 Eosinophils % 0.8 Glucose Level 192 Hematocrit 39.3 L Hemoglobin 13.6 L Lymphocytes # 1.3 Lymphocytes % 18.4 Mean Corpuscular Hemoglobin 31.2 Mean Corpuscular Hemoglobin Concent 34.7 Mean Corpuscular Volume 89.9 Mean Platelet Volume 8.4 Monocytes # 1.1 H Monocytes % 15.4 H Neutrophils # 4.6 Neutrophils % 65.3 Nucleated Red Blood Cells # 0.0 Nucleated Red Blood Cells % 0.0 Platelet Count 179 Potassium Level 3.9 Red Blood Count 4.37 L Red Cell Distribution Width 12.8 Sodium Level 140 White Blood Count 7.0 Medications Medications Current Medications Ondansetron HCl (Zofran Inj) 4 mg Q6H PRN IV NAUSEA AND/OR VOMITING; Start 03/11 at 22:30 Acetaminophen (Tylenol Tab) 650 mg Q6H PRN PO PAIN LEVEL 1-3 OR FEVER; Start at 22:30 Acetaminophen/ Hydrocodone Bitart ([place] (5/325)) 1 tab Q6H PRN PO MODERATE PAIN LEVEL 4-6; Start 03/11/16 at 22:30 Morphine Sulfate (morphine) 2 mg Q4H PRN IV SEVERE PAIN LEVEL 7-10; Start at 22:30 Docusate Sodium (Colace) 100 mg Q12H PRN PO CONSTIPATION; Start 03/11/16 at 22: 30 Zolpidem Tartrate (Ambien) 5 mg QHS PRN PO SLEEP; Start 03/11/16 at 22:30 Enoxaparin Sodium (Lovenox) 40 mg DAILY SC Last administered on 03/14/16 09:04 ; Admin Dose 40 MG; Start 03/12/16 at 09:00 Promethazine HCl/ Codeine (Phenergan/ Codeine) 5 ml Q4H PRN PO COUGH Last administered on 03/14/16 04:19; Admin Dose 5 ML; Start 03/11/16 at 22:30 Aspirin (Halfprin) 81 mg DAILY PO Last administered on 03/14/16 09:04; Admin Dose 81 MG; Start 03/12/16 at 09:00 Miscellaneous Information 1 ea NOTE XX ; Start 03/11/16 at 23:00 Glucose (Glutose) 15 gm Q15M PRN PO DECREASED GLUCOSE; Start 03/11/16 at 23:00 Glucose (Glutose) 22.5 gm Q15M PRN PO DECREASED GLUCOSE; Start 03/11/16 at 23:00 Dextrose (D50w Syringe) 25 ml Q15M PRN IV DECREASED GLUCOSE; Start 03/11/16 at 23:00 Dextrose (D50w Syringe) 50 ml Q15M PRN IV DECREASED GLUCOSE; Start 03/11/16 at 23:00 Glucagon (Glucagen) 1 mg Q15M PRN IM DECREASED GLUCOSE; Start 03/11/16 at 23:00 Glucose (Glutose) 15 gm Q15M PRN BUCCAL DECREASED GLUCOSE; Start 03/11/16 at 23: 00 Diltiazem HCl (Cardizem) 30 mg Q6 PO Last administered on 03/14/16 05:46; Admin Dose 30 MG; Start 03/12/16 at 12:00 Insulin Glargine (Lantus) 20 unit HS SC Last administered on 03/13/16 20:45; Admin Dose 20 UNIT; Start 03/12/16 at 21:00 Bisoprolol Fumarate (Zebeta) 5 mg DAILY PO Last administered on 03/13/16 15:53 ; Admin Dose 5 MG; Start 03/13/16 at 15:00 Lisinopril (Zestril) 5 mg DAILY PO ; Start 03/14/16 at 09:00 VADIM GRAVES Mar 14, 2016 12:26
--- NOTE | 2016-03-14 12:28 | PN ---
Date/Time of Note Date/Time of Note LATE ENTRY DATE: 03/13/16 Assessment/Plan VTE Prophylaxis VTE Prophylaxis Intervention: LMWH Lines/Catheters [facility] Urinary Cath still in place: No Assessment/Plan Chief Complaint/Hosp Course Assessment and plan 1. Atrial fibrillation with rapid ventricular response.. Cardiologists following. echo with EF: 25%. Continue on beta vamsi and calcium channel vamsi. 2. Reported cough with hemoptysis. No further reports of hemoptysis. Continue on antitussives as needed. 3. type 2 diabetes. . Continue on insulin regimen for now. 4. Essential hypertension. cont on antihypertensives and adjust as needed DVT prophylaxis: Lovenox Disposition and plan: cont cardizem. cont diuresis per cardiology recommendations. Discussed plan of care with Problems: Subjective 24 Hr Interval Summary Free Text/Dictation reports feeling better today Exam/Review of Systems Vital Signs Vitals Vital Signs Date Time Temp Pulse Resp B/P Pulse Ox O2 Delivery O2 Flow Rate FiO2 03/14/16 12:20 102 03/14/16 11:36 98.3 18 87/66 100 03/13/16 21:42 Nasal Cannula 03/12/16 08:00 2.0 Intake and Output 03/13/16 03/13/16 03/14/16 15:00 23:00 07:00 Intake Total 750 ml 300 ml Balance 750 ml 300 ml Exam General: No acute signs or symptoms of distress Eyes: pupils equal round, Anicteric sclera Neck: Supple nontender, no JVD Cardiac: irregular rhythm Pulmonary: No coarse rhonchi or breathing auscultated GI: Abdomen soft nontender nondistended, bowel sounds active Extremities: minimal edema ble Skin: Clean dry and intact Neurologic: Alert to person place and time and situation Results Result Diagram: 03/14/16 0523 03/14/16 0523 Results 24 hrs Laboratory Tests Test 03/13/16 17:37 03/13/16 20:36 03/14/16 05:23 03/14/16 07:57 Bedside Glucose 164 171 144 Anion Gap 16 Basophils # 0.0 Basophils % 0.1 Blood Urea Nitrogen 16 Calcium Level 9.1 Carbon Dioxide Level 30 Chloride Level 98 Creatinine 0.68 Eosinophils # 0.1 Eosinophils % 0.8 Glucose Level 192 Hematocrit 39.3 L Hemoglobin 13.6 L Lymphocytes # 1.3 Lymphocytes % 18.4 Mean Corpuscular Hemoglobin 31.2 Mean Corpuscular Hemoglobin Concent 34.7 Mean Corpuscular Volume 89.9 Mean Platelet Volume 8.4 Monocytes # 1.1 H Monocytes % 15.4 H Neutrophils # 4.6 Neutrophils % 65.3 Nucleated Red Blood Cells # 0.0 Nucleated Red Blood Cells % 0.0 Platelet Count 179 Potassium Level 3.9 Red Blood Count 4.37 L Red Cell Distribution Width 12.8 Sodium Level 140 White Blood Count 7.0 Medications Medications Current Medications Ondansetron HCl (Zofran Inj) 4 mg Q6H PRN IV NAUSEA AND/OR VOMITING; Start 03/11 at 22:30 Acetaminophen (Tylenol Tab) 650 mg Q6H PRN PO PAIN LEVEL 1-3 OR FEVER; Start at 22:30 Acetaminophen/ Hydrocodone Bitart ([place] (5/325)) 1 tab Q6H PRN PO MODERATE PAIN LEVEL 4-6; Start 03/11/16 at 22:30 Morphine Sulfate (morphine) 2 mg Q4H PRN IV SEVERE PAIN LEVEL 7-10; Start at 22:30 Docusate Sodium (Colace) 100 mg Q12H PRN PO CONSTIPATION; Start 03/11/16 at 22: 30 Zolpidem Tartrate (Ambien) 5 mg QHS PRN PO SLEEP; Start 03/11/16 at 22:30 Enoxaparin Sodium (Lovenox) 40 mg DAILY SC Last administered on 03/14/16 09:04 ; Admin Dose 40 MG; Start 03/12/16 at 09:00 Promethazine HCl/ Codeine (Phenergan/ Codeine) 5 ml Q4H PRN PO COUGH Last administered on 03/14/16 04:19; Admin Dose 5 ML; Start 03/11/16 at 22:30 Aspirin (Halfprin) 81 mg DAILY PO Last administered on 03/14/16 09:04; Admin Dose 81 MG; Start 03/12/16 at 09:00 Miscellaneous Information 1 ea NOTE XX ; Start 03/11/16 at 23:00 Glucose (Glutose) 15 gm Q15M PRN PO DECREASED GLUCOSE; Start 03/11/16 at 23:00 Glucose (Glutose) 22.5 gm Q15M PRN PO DECREASED GLUCOSE; Start 03/11/16 at 23:00 Dextrose (D50w Syringe) 25 ml Q15M PRN IV DECREASED GLUCOSE; Start 03/11/16 at 23:00 Dextrose (D50w Syringe) 50 ml Q15M PRN IV DECREASED GLUCOSE; Start 03/11/16 at 23:00 Glucagon (Glucagen) 1 mg Q15M PRN IM DECREASED GLUCOSE; Start 03/11/16 at 23:00 Glucose (Glutose) 15 gm Q15M PRN BUCCAL DECREASED GLUCOSE; Start 03/11/16 at 23: 00 Diltiazem HCl (Cardizem) 30 mg Q6 PO Last administered on 03/14/16 05:46; Admin Dose 30 MG; Start 03/12/16 at 12:00 Insulin Glargine (Lantus) 20 unit HS SC Last administered on 03/13/16 20:45; Admin Dose 20 UNIT; Start 03/12/16 at 21:00 Bisoprolol Fumarate (Zebeta) 5 mg DAILY PO Last administered on 03/13/16 15:53 ; Admin Dose 5 MG; Start 03/13/16 at 15:00 Lisinopril (Zestril) 5 mg DAILY PO ; Start 03/14/16 at 09:00 VADIM GRAVES Mar 14, 2016 12:28
--- NOTE | 2016-03-14 18:45 | CONS ---
Date/Time of Note Date/Time of Note DATE: 03/14/16 TIME: 18:34 Assessment/Plan Assessment/Plan Chief Complaint/Hosp Course Atrial fibrillation: rapid ventricular response Acute decompensated systolic heart failure: improving with diuresis Cardiomyopathy, LVEF 25%: new diagnosis, etiology unknown Diabetes mellitus Hypertension Dyslipidemia -continue Lasix 40mg IV BID -decrease lisinopril to 2.5mg daily, discontinue diltiazem and bisoprolol (low blood pressures) -start metoprolol 25mg PO Q6hr, eventually change to succinate form when on stable dose -add digoxin: load 0.5mg x 1, then 0.25mg Q6hr x 2, then 0.25mg daily -discontinue aspirin, start Eliquis 5mg BID -will eventually need coronary angiography, can be done as outpatient Problems: Consultation Date/Type/Reason Admit Date/Time Mar 11, 2016 at 20:23 Initial Consult Date 03/12/16 Type of Consultation: Cardiology 24 HR Interval Summary Free Text/Dictation Patient denies chest pain or shortness of breath. Did not receive diltiazem due to borderline blood pressures. Remains in atrial fibrillation with rapid ventricular rates. Detailed Summary Additional Comments 14 point review of systems without changes. Exam/Review of Systems Vital Signs Vitals Vital Signs Date Time Temp Pulse Resp B/P Pulse Ox O2 Delivery O2 Flow Rate FiO2 03/14/16 16:29 124 03/14/16 16:08 98.4 17 88/63 97 03/14/16 07:45 Nasal Cannula 03/12/16 08:00 2.0 Intake and Output 03/13/16 03/13/16 03/14/16 15:00 23:00 07:00 Intake Total 750 ml 300 ml Balance 750 ml 300 ml Exam Constitutional: alert, oriented Psych: no complaints Head: atraumatic, normocephalic Neck: jvd (9cm) Respiratory: crackles/rales, No clear to auscultation Cardiovascular: edema (1+), No regular rate and rhythm, No systolic murmur Gastrointestinal: non-tender, soft Neurological: nl mental status, nl speech Results Result Diagram: 03/14/16 0523 03/14/16 0523 Results 24 hrs Laboratory Tests Test 03/13/16 20:36 03/14/16 05:23 03/14/16 07:57 03/14/16 12:28 Bedside Glucose 171 144 80 Anion Gap 16 Basophils # 0.0 Basophils % 0.1 Blood Urea Nitrogen 16 Calcium Level 9.1 Carbon Dioxide Level 30 Chloride Level 98 Creatinine 0.68 Eosinophils # 0.1 Eosinophils % 0.8 Glucose Level 192 Hematocrit 39.3 L Hemoglobin 13.6 L Lymphocytes # 1.3 Lymphocytes % 18.4 Mean Corpuscular Hemoglobin 31.2 Mean Corpuscular Hemoglobin Concent 34.7 Mean Corpuscular Volume 89.9 Mean Platelet Volume 8.4 Monocytes # 1.1 H Monocytes % 15.4 H Neutrophils # 4.6 Neutrophils % 65.3 Nucleated Red Blood Cells # 0.0 Nucleated Red Blood Cells % 0.0 Platelet Count 179 Potassium Level 3.9 Red Blood Count 4.37 L Red Cell Distribution Width 12.8 Sodium Level 140 White Blood Count 7.0 Test 03/14/16 18:11 Bedside Glucose 270 H Medications Medications Current Medications Ondansetron HCl (Zofran Inj) 4 mg Q6H PRN IV NAUSEA AND/OR VOMITING; Start 03/11 at 22:30 Acetaminophen (Tylenol Tab) 650 mg Q6H PRN PO PAIN LEVEL 1-3 OR FEVER; Start at 22:30 Acetaminophen/ Hydrocodone Bitart ([place] (5/325)) 1 tab Q6H PRN PO MODERATE PAIN LEVEL 4-6; Start 03/11/16 at 22:30 Morphine Sulfate (morphine) 2 mg Q4H PRN IV SEVERE PAIN LEVEL 7-10; Start at 22:30 Docusate Sodium (Colace) 100 mg Q12H PRN PO CONSTIPATION; Start 03/11/16 at 22: 30 Zolpidem Tartrate (Ambien) 5 mg QHS PRN PO SLEEP; Start 03/11/16 at 22:30 Enoxaparin Sodium (Lovenox) 40 mg DAILY SC Last administered on 03/14/16 09:04 ; Admin Dose 40 MG; Start 03/12/16 at 09:00 Promethazine HCl/ Codeine (Phenergan/ Codeine) 5 ml Q4H PRN PO COUGH Last administered on 03/14/16 12:52; Admin Dose 5 ML; Start 03/11/16 at 22:30 Aspirin (Halfprin) 81 mg DAILY PO Last administered on 03/14/16 09:04; Admin Dose 81 MG; Start 03/12/16 at 09:00 Miscellaneous Information 1 ea NOTE XX ; Start 03/11/16 at 23:00 Glucose (Glutose) 15 gm Q15M PRN PO DECREASED GLUCOSE; Start 03/11/16 at 23:00 Glucose (Glutose) 22.5 gm Q15M PRN PO DECREASED GLUCOSE; Start 03/11/16 at 23:00 Dextrose (D50w Syringe) 25 ml Q15M PRN IV DECREASED GLUCOSE; Start 03/11/16 at 23:00 Dextrose (D50w Syringe) 50 ml Q15M PRN IV DECREASED GLUCOSE; Start 03/11/16 at 23:00 Glucagon (Glucagen) 1 mg Q15M PRN IM DECREASED GLUCOSE; Start 03/11/16 at 23:00 Glucose (Glutose) 15 gm Q15M PRN BUCCAL DECREASED GLUCOSE; Start 03/11/16 at 23: 00 Diltiazem HCl (Cardizem) 30 mg Q6 PO Last administered on 03/14/16 05:46; Admin Dose 30 MG; Start 03/12/16 at 12:00 Insulin Glargine (Lantus) 20 unit HS SC Last administered on 03/13/16 20:45; Admin Dose 20 UNIT; Start 03/12/16 at 21:00 Bisoprolol Fumarate (Zebeta) 5 mg DAILY PO Last administered on 03/13/16 15:53 ; Admin Dose 5 MG; Start 03/13/16 at 15:00 Lisinopril (Zestril) 5 mg DAILY PO ; Start 03/14/16 at 09:00 BRANDEE HATFIELD MD Mar 14, 2016 18:44
[2016-03-14] MEDS ORDERED: DIGOXIN 0.25 MG TAB PO ONE (19:00)
[2016-03-14] MEDS: INSULIN GLARGINE [LANtus] 3 ML PEN SC SCH (21:00)
[2016-03-14] MEDS: APIXABAN 5 MG TABLET PO SCH (21:22)
[2016-03-15] VITALS (10 sets, daily range): BP systolic 85–128; BP diastolic 53–85; PULSE 95–118; RESP 17–20
[2016-03-15] MEDS: METOPROLOL 25 MG TAB PO SCH ×4 (00:04→18:40)
[2016-03-15] MEDS: PROMETHAZINE/CODEINE 5ML CUP PO PRN ×4 (00:08→20:51)
[2016-03-15] MEDS ORDERED: DIGOXIN 0.25 MG TAB PO ONE ×2 (06:00)
[2016-03-15] MEDS: FUROSEMIDE 40 MG INJ IV SCH ×2 (06:03→18:40)
[2016-03-15 07:18] LABS: BASOPHILS % 0.5 % (0.0-2.0); EOSINOPHILS # 0.2 10^3/ul (0.0-0.5); EOSINOPHILS % 2.2 % (0.0-7.0); HEMOGLOBIN 13.8 g/dl (14.0-18.0); LYMPHOCYTES # 1.9 10^3/ul (0.8-2.9); LYMPHOCYTES % 25.6 % (15.0-51.0); MEAN CORPUSCULAR HEMOGLOBIN 30.7 pg (29.0-33.0); MEAN CORPUSCULAR HGB CONC 33.6 g/dl (32.0-37.0); MEAN CORPUSCULAR VOLUME 91.3 fl (82.0-101.0); MEAN PLATELET VOLUME 8.4 fl (7.4-10.4); MONOCYTES % 13.8 % (0.0-11.0); NEUTROPHIL # 4.3 10^3/ul (1.6-7.5); NEUTROPHILS % 57.9 % (39.0-77.0); PLATELET COUNT 199 10^3/UL (140-440); RED BLOOD COUNT 4.49 10^6/ul (4.70-6.10); UNCORRECTED WBC 7.4 10^3/ul (4.8-10.8); WHITE BLOOD COUNT 7.4 10^3/ul (4.8-10.8)
[2016-03-15 07:20] LABS: CONDITION 1
[2016-03-15 07:36] LABS: POTASSIUM 4.5 mmol/L (3.5-5.1)
[2016-03-15 07:38] LABS: CREATININE 0.86 mg/dl (0.61-1.24)
[2016-03-15 07:39] LABS: CALCIUM 9.2 mg/dl (8.4-10.2)
[2016-03-15] MEDS: INSULIN ASPART [NOVOLOG] 3 ML PEN SC SCH ×7 (08:58→21:11)
[2016-03-15] MEDS: APIXABAN 5 MG TABLET PO SCH ×2 (09:04→20:50)
[2016-03-15] MEDS: LISINOPRIL 5 MG TAB PO SCH (09:04)
--- NOTE | 2016-03-15 10:40 | PDOCDIS ---
Discharge Instructions DIAGNOSIS Discharge Diagnosis: 1. atrial fibrilation with RVR 2. cardiomyopathy 3. diabetes CONDITION Patient Condition: Stable HOME CARE INSTRUCTIONS: Diet Instructions: Low Fat /CholesterolSpecial Diet: carbohydrate controlled FOLLOW UP/APPOINTMENTS Appointments 1. Follow up with Dr. Donald Barker in one week 2. Follow up with your primary care provider in 1-2 weeks OTHER ORDERS: Other Orders: 1. Take your medications as prescribed 2. Call 911 if you have worse chest pain or shortness of breath VADIM GRAVES Mar 15, 2016 10:39
[2016-03-15] MEDS ORDERED: METO100T13 PO (10:41)
[2016-03-15] MEDS ORDERED: LISI2.5T59 PO (10:41)
[2016-03-15] MEDS ORDERED: AZIT500T2 PO (11:09)
[2016-03-15] MEDS ORDERED: UDROBAC PO (11:09)
--- NOTE | 2016-03-15 15:08 | DS ---
Date/Time of Note Date/Time of Note DATE: 03/15/16 TIME: 15:04 Discharge Summary Admission/Discharge Info Admit Date/Time Mar 11, 2016 at 20:23 Discharge Date/Time Final Diagnosis 1. Atrial fibrillation with rapid ventricular response.. 2. Reported cough with hemoptysis. 3. type 2 diabetes. . 4. Essential hypertension. Consults 1. [facility] This is a 60-year-old male with history of hco-qrvfkxf-iztujkjvm diabetes(but noncompliant with oral medication) did come to [facility] due to reports of 6 months where he felt his heart racing and a sense of palpitations. He did state that he started to have severe chest discomfort and palpitations as well as shortness of breath and that is what essentially about him to come to [facility]. Patient also did report having cough for about a week. He did try taking veuj-hbc-rihsljs home medications with no resolution. When he came to [facility] he was noted to have atrial fibrillation. He also had rapid ventricular response with this. He was continued on calcium channel vamsi and he was seen by surgical assistant. We did give the patient antitussives and he did respond well to this. He was continued on calcium channel vamsi and we were able to get his rate regular. Of note he did have echocardiogram with ejection fraction of 25%. We did continue to diuresis patient per cardiology recommendations. For his type 2 diabetes he was also continue insulin regimen. He was instructed to have compliance with his medications. He was also optimize on antihypertensives for his hypertension. Patient was placed on anticoagulation for his atrial fibrillation. During his course of stay did improve. The plan of care was discussed with the patient and patient did verbalize his understanding. He was instructed to follow-up with surgical assistant within week. On the day of discharge patient was in stable condition Discussed plan of care with Disposition: home Home Meds Active Scripts Guaifenesin-Codeine Phosphate* (Robitussin* AC) 5 Ml Syrup, 5 ML PO Q6H Y for COUGH, #8 OZ Prov:VADIM GRAVES 03/15/16 Azithromycin* (Zithromax* Tri-Romeo) 500 Mg Tablet, 500 MG PO DAILY for 3 Days, TAB Prov:VADIM GRAVES 03/15/16 Metoprolol Succinate* (Toprol XL*) 100 Mg Tab.sr.24h, 100 MG PO DAILY, #30 TAB Prov:JESSICAVADIM REYNOSO 03/15/16 Lisinopril* (Lisinopril*) 2.5 Mg Tablet, 2.5 MG PO DAILY, #30 TAB Prov:JESSICAVADIM REYNOSO 03/15/16 Apixaban* (Eliquis*) 5 Mg Tablet, 5 MG PO BID for 30 Days, TAB Prov:SOFIEVADIM Gonzalez 03/14/16 Potassium Chloride* (Potassium Chloride*) 20 Meq Tablet.er, 10 MEQ PO DAILY for 30 Days, TAB.SA Prov:JESSICAVADIM REYNOSO 03/14/16 Furosemide* (Lasix*) 40 Mg Tablet, 40 MG PO DAILY for 30 Days, TAB Prov:JESSICAVADIM REYNOSO 03/14/16 Diltiazem Hcl* (Cardizem*) 30 Mg Tablet, 30 MG PO Q6 for 30 Days, TAB Prov:VADIM GRAVES 03/13/16 Metformin Hcl* (Metformin Hcl*) 500 Mg Tablet, 500 MG PO WITH BREAKFAST DINNE, # 60 TAB Prov:JESSICAANGELESVADIM 03/13/16 Discontinued Reported Medications Aspirin* (Aspirin* Chew) 81 Mg Tab.chew, 81 MG PO DAILY, TAB.CHEW 03/13/16 Metformin* (Glucophage*) 500 Mg Tab, 500 MG PO WITH BREAKFAST, #30 TAB 03/13/16 Follow-up Plan CONDITION Patient Condition: Stable HOME CARE INSTRUCTIONS: Diet Instructions: Low Fat /CholesterolSpecial Diet: carbohydrate controlled FOLLOW UP/APPOINTMENTS Appointments 1. Follow up with Dr. Donald Barker in one week 2. Follow up with your primary care provider in 1-2 weeks OTHER ORDERS: Other Orders: 1. Take your medications as prescribed 2. Call 911 if you have worse chest pain or shortness of breath Pending Labs Laboratory Tests Test 03/14/16 18:11 03/14/16 21:19 03/15/16 05:32 03/15/16 08:02 Bedside Glucose 270mg/dL (70-220) 89mg/dL (70-220) 240mg/dL (70-220) Anion Gap 14 (8-16) Basophils # 0.010^3/ul (0.0-0.1) Basophils % 0.5% (0.0-2.0) Blood Urea Nitrogen 17mg/dl (7-20) Calcium Level 9.2mg/dl (8.4-10.2) Carbon Dioxide Level 33mmol/L (21-31) Chloride Level 102mmol/L (97-110) Creatinine 0.86mg/dl (0.61-1.24) Eosinophils # 0.210^3/ul (0.0-0.5) Eosinophils % 2.2% (0.0-7.0) Glucose Level 137mg/dl (70-220) Hematocrit 41.0% (42.0-52.0) Hemoglobin 13.8g/dl (14.0-18.0) Lymphocytes # 1.910^3/ul (0.8-2.9) Lymphocytes % 25.6% (15.0-51.0) Mean Corpuscular Hemoglobin 30.7pg (29.0-33.0) Mean Corpuscular Hemoglobin Concent 33.6g/dl (32.0-37.0) Mean Corpuscular Volume 91.3fl (82.0-101.0) Mean Platelet Volume 8.4fl (7.4-10.4) Monocytes # 1.010^3/ul (0.3-0.9) Monocytes % 13.8% (0.0-11.0) Neutrophils # 4.310^3/ul (1.6-7.5) Neutrophils % 57.9% (39.0-77.0) Nucleated Red Blood Cells # 0.010^3/ul (0.0-0.0) Nucleated Red Blood Cells % 0.0/100WBC (0.0-0.0) Platelet Count 65994^3/UL (140-440) Potassium Level 4.5mmol/L (3.5-5.1) Red Blood Count 4.4910^6/ul (4.70-6.10) Red Cell Distribution Width 13.0% (11.5-14.5) Sodium Level 144mmol/L (135-144) White Blood Count 7.410^3/ul (4.8-10.8) Test 03/15/16 12:49 Bedside Glucose 94mg/dL (70-220) VADIM GRAVES 10, 2017 15:08
[2016-03-15] MEDS ORDERED: DILTIAZEM 60 MG TAB PO PRN (22:00)
[2016-03-15] MEDS: INSULIN GLARGINE [LANtus] 3 ML PEN SC SCH (22:24)
[2016-03-15] MEDS: METOPROLOL 50 MG TAB PO SCH (23:55)
[2016-03-16] VITALS (11 sets, daily range): BP systolic 94–125; BP diastolic 62–78; PULSE 82–109; RESP 18–20
[2016-03-16] MEDS: FUROSEMIDE 40 MG INJ IV SCH (06:37)
[2016-03-16] MEDS: METOPROLOL 50 MG TAB PO SCH ×3 (06:37→17:17)
[2016-03-16 07:19] LABS: BASOPHILS % 0.4 % (0.0-2.0); EOSINOPHILS # 0.2 10^3/ul (0.0-0.5); EOSINOPHILS % 3.2 % (0.0-7.0); HEMATOCRIT 41.3 % (42.0-52.0); HEMOGLOBIN 14.1 g/dl (14.0-18.0); LYMPHOCYTES # 1.8 10^3/ul (0.8-2.9); MEAN CORPUSCULAR HEMOGLOBIN 31.1 pg (29.0-33.0); MEAN CORPUSCULAR HGB CONC 34.2 g/dl (32.0-37.0); MONOCYTE # 0.9 10^3/ul (0.3-0.9); MONOCYTES % 12.5 % (0.0-11.0); NEUTROPHIL # 4.5 10^3/ul (1.6-7.5); NEUTROPHILS % 59.9 % (39.0-77.0); PLATELET COUNT 229 10^3/UL (140-440); RED BLOOD COUNT 4.54 10^6/ul (4.70-6.10); RED CELL DISTRIBUTION WIDTH 12.8 % (11.5-14.5); UNCORRECTED WBC 7.4 10^3/ul (4.8-10.8); WHITE BLOOD COUNT 7.4 10^3/ul (4.8-10.8)
[2016-03-16 07:24] LABS: CONDITION 1
[2016-03-16 07:33] LABS: POTASSIUM 4.4 mmol/L (3.5-5.1)
[2016-03-16 07:35] LABS: CREATININE 0.91 mg/dl (0.61-1.24)
[2016-03-16 07:36] LABS: CALCIUM 8.9 mg/dl (8.4-10.2)
[2016-03-16] MEDS: INSULIN ASPART [NOVOLOG] 3 ML PEN SC SCH ×5 (07:55→17:55)
[2016-03-16] MEDS: PROMETHAZINE/CODEINE 5ML CUP PO PRN ×3 (08:13→17:17)
[2016-03-16] MEDS: APIXABAN 5 MG TABLET PO SCH (09:27)
[2016-03-16] MEDS: LISINOPRIL 5 MG TAB PO SCH (09:28)
[2016-03-16] MEDS ORDERED: DIGOXIN 0.25 MG TAB PO SCH (13:00)
--- NOTE | 2016-03-16 15:22 | CONS ---
Date/Time of Note Date/Time of Note DATE: 03/16/16 TIME: 15:20 Assessment/Plan Assessment/Plan Chief Complaint/Hosp Course Atrial fibrillation: rapid ventricular response Acute decompensated systolic heart failure: improved with diuresis Cardiomyopathy, LVEF 25%: new diagnosis, etiology unknown Diabetes mellitus Hypertension Dyslipidemia -change Lasix to 40mg PO daily -continue metoprolol 50mg PO Q6hr, can change to succinate form prior to discharge -continue lisinopril 2.5mg daily, up titrate as tolerated -continue digoxin 0.25mg daily -continue Eliquis 5mg BID -will eventually need coronary angiography, can be done as outpatient Problems: Consultation Date/Type/Reason Admit Date/Time Mar 11, 2016 at 20:23 Initial Consult Date 03/12/16 Type of Consultation: Cardiology 24 HR Interval Summary Free Text/Dictation No chest pain or shortness of breath. Atrial fibrillation with controlled ventricular rates. Detailed Summary Additional Comments 14 point review of systems without changes. Exam/Review of Systems Vital Signs Vitals Vital Signs Date Time Temp Pulse Resp B/P Pulse Ox O2 Delivery O2 Flow Rate FiO2 03/16/16 12:27 95 03/16/16 11:28 98.2 20 106/68 96 03/16/16 06:00 Room Air 03/12/16 08:00 2.0 Intake and Output 03/15/16 03/15/16 03/16/16 15:00 23:00 07:00 Intake Total 600 ml 400 ml Balance 600 ml 400 ml Exam Constitutional: alert, oriented Psych: no complaints Head: atraumatic, normocephalic Neck: jvd (9cm) Respiratory: crackles/rales, No clear to auscultation Cardiovascular: edema (1+), No regular rate and rhythm, No systolic murmur Gastrointestinal: non-tender, soft Neurological: nl mental status, nl speech Results Result Diagram: 03/16/16 0612 03/16/16 0612 Results 24 hrs Laboratory Tests Test 03/15/16 18:30 03/15/16 20:40 03/16/16 01:48 03/16/16 06:12 Bedside Glucose 277 H 276 H 196 Anion Gap 14 Basophils # 0.0 Basophils % 0.4 Blood Urea Nitrogen 20 Calcium Level 8.9 Carbon Dioxide Level 32 H Chloride Level 100 Creatinine 0.91 Eosinophils # 0.2 Eosinophils % 3.2 Glucose Level 133 Hematocrit 41.3 L Hemoglobin 14.1 Lymphocytes # 1.8 Lymphocytes % 24.0 Mean Corpuscular Hemoglobin 31.1 Mean Corpuscular Hemoglobin Concent 34.2 Mean Corpuscular Volume 91.0 Mean Platelet Volume 8.0 Monocytes # 0.9 Monocytes % 12.5 H Neutrophils # 4.5 Neutrophils % 59.9 Nucleated Red Blood Cells # 0.0 Nucleated Red Blood Cells % 0.0 Platelet Count 229 Potassium Level 4.4 Red Blood Count 4.54 L Red Cell Distribution Width 12.8 Sodium Level 142 White Blood Count 7.4 Test 03/16/16 07:53 03/16/16 12:31 Bedside Glucose 140 157 Medications Medications Current Medications Ondansetron HCl (Zofran Inj) 4 mg Q6H PRN IV NAUSEA AND/OR VOMITING; Start 03/11 at 22:30 Acetaminophen (Tylenol Tab) 650 mg Q6H PRN PO PAIN LEVEL 1-3 OR FEVER; Start at 22:30 Acetaminophen/ Hydrocodone Bitart ([place] (5/325)) 1 tab Q6H PRN PO MODERATE PAIN LEVEL 4-6; Start 03/11/16 at 22:30 Morphine Sulfate (morphine) 2 mg Q4H PRN IV SEVERE PAIN LEVEL 7-10; Start at 22:30 Docusate Sodium (Colace) 100 mg Q12H PRN PO CONSTIPATION; Start 03/11/16 at 22: 30 Zolpidem Tartrate (Ambien) 5 mg QHS PRN PO SLEEP; Start 03/11/16 at 22:30 Promethazine HCl/ Codeine (Phenergan/ Codeine) 5 ml Q4H PRN PO COUGH Last administered on 03/16/16t 13:16; Admin Dose 5 ML; Start 03/11/16 at 22:30 Miscellaneous Information 1 ea NOTE XX ; Start 03/11/16 at 23:00 Glucose (Glutose) 15 gm Q15M PRN PO DECREASED GLUCOSE; Start 03/11/16 at 23:00 Glucose (Glutose) 22.5 gm Q15M PRN PO DECREASED GLUCOSE; Start 03/11/16 at 23:00 Dextrose (D50w Syringe) 25 ml Q15M PRN IV DECREASED GLUCOSE; Start 1/6/17 at 23:00 Dextrose (D50w Syringe) 50 ml Q15M PRN IV DECREASED GLUCOSE; Start 03/11/16 at 23:00 Glucagon (Glucagen) 1 mg Q15M PRN IM DECREASED GLUCOSE; Start 03/11/16 at 23:00 Glucose (Glutose) 15 gm Q15M PRN BUCCAL DECREASED GLUCOSE; Start 03/11/16 at 23: 00 Insulin Glargine (Lantus) 20 unit HS SC Last administered on 03/15/16 22:24; Admin Dose 20 UNIT; Start 03/12/16 at 21:00 Lisinopril (Zestril) 2.5 mg DAILY PO Last administered on 03/16/16 09:28; Admin Dose 2.5 MG; Start 03/15/16 at 09:00 Digoxin (Digoxin) 0.25 mg DAILY@13 PO Last administered on 03/16/16 13:11; Admin Dose 0.25 MG; Start 03/16/16 at 13:00 Apixaban (Eliquis) 5 mg BID PO Last administered on 03/16/16 09:27; Admin Dose 5 MG; Start 03/14/16 at 21:00 Metoprolol Tartrate (Lopressor) 50 mg Q6 PO Last administered on 03/16/16 13: 11; Admin Dose 50 MG; Start 03/16/16 at 00:00 Diltiazem HCl (Cardizem) 60 mg Q6H PRN PO HR<110; Start 03/15/16 at 22:00 BRANDEE HATFIELD MD Mar 16, 2016 15:22
[2016-03-17] MEDS ORDERED: FUROSEMIDE 40 MG TAB PO SCH (09:00)
--- NOTE | 2016-03-19 11:00 | DS ---
Date/Time of Note Date/Time of Note DATE: 03/19/16 TIME: 10:52 Discharge Summary Admission/Discharge Info Admit Date/Time Mar 11, 2016 at 20:23 Discharge Date/Time Mar 16, 2016 at 18:50 Final Diagnosis 1. Atrial fibrillation with rapid ventricular response.. 2. Reported cough with hemoptysis. 3. type 2 diabetes. . 4. Essential hypertension. Consults 1. Dr. Donald Barker 2. Dr. Dejesus [facility] Course This is a 60-year-old male with history of eic-cxgcign-vzxizjwgg diabetes(but noncompliant with oral medication) did come to [facility] due to reports of 6 months where he felt his heart racing and a sense of palpitations. He did state that he started to have severe chest discomfort and palpitations as well as shortness of breath and that is what essentially about him to come to [facility]. Patient also did report having cough for about a week. He did try taking vqtx-nhz-hmnkgow home medications with no resolution. When he came to [facility] he was noted to have atrial fibrillation. He also had rapid ventricular response with this. He was continued on calcium channel vamsi and he was seen by systems administration analyst. We did give the patient antitussives and he did respond well to this. He was continued on calcium channel vamsi and we were able to get his rate regular. Of note he did have echocardiogram with ejection fraction of 25%. We did continue to diuresis patient per cardiology recommendations. For his type 2 diabetes he was also continue insulin regimen. He was instructed to have compliance with his medications. He was also optimize on antihypertensives for his hypertension. Patient was placed on anticoagulation for his atrial fibrillation. During his course of stay did improve. Patient was initially planned for d/c on 03/15/16, however he did have episode of fast heart rate. discharge was held per cardiology recommendations. We did continue further observation. On 03/16/16, patient's heart rate did remain stable. He was cleared for d/c on 03/16/16. The plan of care was discussed with the patient and patient did verbalize his understanding. He was instructed to follow-up with systems administration analyst within week. On the day of discharge patient was in stable condition Discussed plan of care with Home Meds Active Scripts Guaifenesin-Codeine Phosphate* (Robitussin* AC) 5 Ml Syrup, 5 ML PO Q6H Y for COUGH, #8 OZ Prov:VADIM GRAVES 03/15/16 Azithromycin* (Zithromax* Tri-Romeo) 500 Mg Tablet, 500 MG PO DAILY for 3 Days, TAB Prov:VADIM GRAVES 03/15/16 Metoprolol Succinate* (Toprol XL*) 100 Mg Tab.sr.24h, 100 MG PO DAILY, #30 TAB Prov:VADIM GRAVES 03/15/16 Lisinopril* (Lisinopril*) 2.5 Mg Tablet, 2.5 MG PO DAILY, #30 TAB Prov:VADIM GRAVES 03/15/16 Apixaban* (Eliquis*) 5 Mg Tablet, 5 MG PO BID for 30 Days, TAB Prov:VADIM GRAVES 03/14/16 Potassium Chloride* (Potassium Chloride*) 20 Meq Tablet.er, 10 MEQ PO DAILY for 30 Days, TAB.SA Prov:VADIM GRAVES 03/14/16 Furosemide* (Lasix*) 40 Mg Tablet, 40 MG PO DAILY for 30 Days, TAB Prov:VADIM GRAVES 03/14/16 Diltiazem Hcl* (Cardizem*) 30 Mg Tablet, 30 MG PO Q6 for 30 Days, TAB Prov:VADIM GRAVES 03/13/16 Metformin Hcl* (Metformin Hcl*) 500 Mg Tablet, 500 MG PO WITH BREAKFAST DINNE, # 60 TAB Prov:VADIM GRAVES 03/13/16 Discontinued Reported Medications Aspirin* (Aspirin* Chew) 81 Mg Tab.chew, 81 MG PO DAILY, TAB.CHEW 03/13/16 Metformin* (Glucophage*) 500 Mg Tab, 500 MG PO WITH BREAKFAST, #30 TAB 03/13/16 Follow-up Plan CONDITION Patient Condition: Stable HOME CARE INSTRUCTIONS: Diet Instructions: Low Fat /CholesterolSpecial Diet: carbohydrate controlled FOLLOW UP/APPOINTMENTS Appointments 1. Follow up with Dr. Donald Barker in one week 2. Follow up with your primary care provider in 1-2 weeks OTHER ORDERS: Other Orders: 1. Take your medications as prescribed 2. Call 911 if you have worse chest pain or shortness of breath VADIM GRAVES Mar 19, 2016 11:00
== END 2016-03-16 18:50 | disposition home or self-care (01) | DRG 309 ==
LOC: E/R 18:36 → TEL 20:23
PROVIDERS: ADMIT Internal Medicine; ATTEND Internal Medicine
DX: I48.91 Unspecified atrial fibrillation (principal); R04.2 Hemoptysis; I10 Essential (primary) hypertension; R05 Cough; E11.9 Type 2 diabetes mellitus without complications; Z91.14 Patient's other noncompliance with medication regimen; E78.5 Hyperlipidemia, unspecified
CPT/HCPCS: 71010; 80048; 80053; 80061; 80076; 82550; 82553; 82962; 83036; 83735; 83880; 84100; 84436; 84479; 84484; 85025; 85610; 85730; 86704; 86709; 86803; 87340; 93005; 93306; J0282; J1650; J1815; J1940; J7030

== ENCOUNTER 2018-03-22 16:37 | Inpatient (IN) | payer OTHER ==
[~2018-03-22] VITALS: Ht 170.2 cm; Wt 80.9 kg
[~2018-03-22 16:37] MED LIST: APIX5TAB PO; AZIT500T2 PO; CODE5LIQ2 PO; DILT30TA30 PO; FURO-109 PO; LISI2.5T59 PO; METF500T24 PO; METO-336 PO; POTA20TA96 PO
[2018-03-22] MEDS ORDERED: MAGNESIUM SULFATE 2 GM/50 ML 50 ML IVPB STA (17:06)
[2018-03-22] MEDS ORDERED: DILTIAZEM-D5W 125MG/125ML DRIP 125 ML IV STA (17:06)
[2018-03-22] MEDS ORDERED: ASPIRIN 81 MG TAB PO STA (17:06)
[2018-03-22] MEDS: DILTIAZEM 25 MG INJ IV STA (17:12)
--- NOTE | 2018-03-22 17:25 | ERD ---
ER Documentation Chief Complaint Chief Complaint chest pain and sob x 4 days hx chf HPI 62-year-old noncompliant diabetic with a history of atrial fibrillation not currently taking rate control medication or anticoagulant. The patient presents with occasional chest pain and shortness of breath. He does have a history of CHF and does describe worsening lower extremity edema. No significant shortness of breath currently. He denies any chest pain currently. He is occasionally having chest pressure and discomfort with exertion. ROS All systems reviewed and are negative except as per history of present illness. Medications Home Meds Reported Medications Dulaglutide (Trulicity) Unknown Strength Pen.injctr, 1 DOSE SQ Q MON 03/22/18 Lisinopril* (Lisinopril*) 5 Mg Tablet, 5 MG PO DAILY, #30 TAB 03/22/18 Discontinued Scripts Guaifenesin-Codeine Phosphate* (Robitussin* AC) 5 Ml Syrup, 5 ML PO Q6H PRN for COUGH, #8 OZ Prov:REGVADIM REYNOSO 03/15/16 Azithromycin* (Zithromax* Tri-Romeo) 500 Mg Tablet, 500 MG PO DAILY for 3 Days, TAB Prov:REGIDORVADIM 03/15/16 Metoprolol Succinate* (Toprol XL*) 100 Mg Tab.sr.24h, 100 MG PO DAILY, #30 TAB Prov:REGVADIM REYNOSO 03/15/16 Lisinopril* (Lisinopril*) 2.5 Mg Tablet, 2.5 MG PO DAILY, #30 TAB Prov:REGIDOVADIM Gonzalez 03/15/16 Apixaban* (Eliquis*) 5 Mg Tablet, 5 MG PO BID for 30 Days, TAB Prov:REGIDOVADIM Gonzalez 03/14/16 Potassium Chloride* (Potassium Chloride*) 20 Meq Tablet.er, 10 MEQ PO DAILY for 30 Days, TAB.SA Prov:REGIDOVADIM Gonzalez 03/14/16 Furosemide* (Lasix*) 40 Mg Tablet, 40 MG PO DAILY for 30 Days, TAB Prov:REGVADIM REYNOSO 03/14/16 Diltiazem Hcl* (Cardizem*) 30 Mg Tablet, 30 MG PO Q6 for 30 Days, TAB Prov:REGVADIM REYNOSO 03/13/16 Metformin Hcl* (Metformin Hcl*) 500 Mg Tablet, 500 MG PO WITH BREAKFAST DINNE, #60 TAB Prov:VADIM GRAVES 03/13/16 Allergies Allergies: Coded Allergies: No Known Allergy (Unverified , 03/22/18) PMhx/Soc History of Surgery: Yes (BreastCyst Bx) Anesthesia Reaction: No Hx Neurological Disorder: No Hx Respiratory Disorders: No Hx Cardiac Disorders: Yes (HTN) Hx Psychiatric Problems: No Hx Miscellaneous Medical Probl: No Hx Alcohol Use: No Hx Substance Use: No Hx Tobacco Use: No Smoking Status: Never smoker FmHx Family History: diabetes Physical Exam Vitals Vital Signs Date Temp Pulse Resp B/P (MAP) Pulse Ox O2 O2 Flow FiO2 Time Delivery Rate 03/22/18 98 23 102/84 99 Room Air 18:05 (90) 03/22/18 106 20 95/81 (86) 99 Nasal 17:16 Cannula 03/22/18 Nasal 2 17:07 Cannula 03/22/18 98.3 42 18 136/80 99 16:42 (98) Physical Exam General: Malnourished Head: Normocephalic, atraumatic. Eyes: Pupils equally reactive, EOM intact ENT: Moist mucous membranes Neck: Supple, no lymphadenopathy Respiratory: Lungs clear bilaterally, no distress Cardiovascular: Tachycardia, irregularly irregular, no murmurs, rubs, or gallops Abdominal: Soft, non-tender, non-distended, no peritoneal signs : Deferred MSK: Pitting bilateral lower extremity edema, no unilateral swelling, 5/5 strength Neurologic: Alert and oriented, moving all extremities, normal speech, no focal weakness, no cerebellar signs Skin: No rash Psych: Normal mood Result Diagram: 03/22/18 1706 03/22/18 1706 Results 24 hrs Laboratory Tests Test 03/22/18 17:06 White Blood Count 7.6 10^3/ul Red Blood Count 4.64 10^6/ul Hemoglobin 14.1 g/dl Hematocrit 43.3 % Mean Corpuscular Volume 93.3 fl Mean Corpuscular Hemoglobin 30.4 pg Mean Corpuscular Hemoglobin Concent 32.6 g/dl Red Cell Distribution Width 13.5 % Platelet Count 232 10^3/UL Mean Platelet Volume 10.2 fl Immature Granulocytes % 0.500 % Neutrophils % 64.4 % Lymphocytes % 21.3 % Monocytes % 9.9 % Eosinophils % 3.2 % Basophils % 0.7 % Nucleated Red Blood Cells % 0.0 /100WBC Immature Granulocytes # 0.040 10^3/ul Neutrophils # 4.9 10^3/ul Lymphocytes # 1.6 10^3/ul Monocytes # 0.8 10^3/ul Eosinophils # 0.2 10^3/ul Basophils # 0.1 10^3/ul Nucleated Red Blood Cells # 0.0 10^3/ul Prothrombin Time 13.4 Sec Prothrombin Time Ratio 1.0 INR International Normalized Ratio 1.01 Activated Partial Thromboplast Time 32.6 Sec Sodium Level 137 mmol/L Potassium Level 4.4 mmol/L Chloride Level 104 mmol/L Carbon Dioxide Level 28 mmol/L Anion Gap 5 Blood Urea Nitrogen 17 mg/dl Creatinine 0.77 mg/dl Est Glomerular Filtrat Rate mL/min > 60 mL/min Glucose Level 180 mg/dl Calcium Level 8.9 mg/dl Troponin I 0.013 ng/ml B-Type Natriuretic Peptide 2120 PG/ML Current Medications Medications Dose Sig/Praveena Start Time Status Last (Trade) Ordered Route PRN Stop Time Admin Dose Reason Admin Aspirin 162 mg ONCE STAT 03/22/18 DC 03/22/18 (Aspirin) PO 17:06 17:12 03/22/18 17:08 Diltiazem 20 mg ONCE STAT 03/22/18 DC 03/22/18 HCl IV 17:06 17:12 (Cardizem Iv) 03/22/18 17:08 Diltiazem 125 ml @ 5 ONCE STAT 03/22/18 HCl mls/hr IV 17:06 03/23/18 18:05 Magnesium 50 ml @ ONCE STAT 03/22/18 DC 03/22/18 Sulfate 600 mls/hr IVPB 17:06 17:19 03/22/18 17:10 Ondansetron 4 mg ER BRIDGE 03/22/18 HCl (Zofran PRN IV 18:30 Inj) NAUSEA AND/OR 03/23/18 18:29 VOMITING 650 mg ER BRIDGE 03/22/18 Acetaminophen PRN PO MILD 18:30 (Tylenol PAIN(1-3)OR 03/23/18 18:29 Tab) ELEVATED TEMP Discontinue ONCE ONCE 03/22/18 DC Miscellaneous current oral XX 19:00 sulfonylur... 03/22/18 19:02 Information (* Miscellaneous Pharmacy Order) Diagnostic 1 ea 02 XX 03/23/18 Test (Pha) 02:00 (Accu-Chek) ONCE ONCE 03/22/18 DC Miscellaneous HYPOGLYCEMIA XX 19:00 PROTOCOL 03/22/18 19:02 Information w... (* Miscellaneous Pharmacy Order) Insulin NOVOLOG WITH MEALS 03/22/18 Aspart *MILD* BEDTIME SC 21:00 (Novolog ALGORITHM Insulin Pen) Discontinue ONCE ONCE 03/22/18 DC Miscellaneous all previ... XX 19:00 03/22/18 19:02 Information (* Miscellaneous Pharmacy Order) Ondansetron 4 mg Q6H PRN 03/22/18 HCl (Zofran IV NAUSEA 19:00 Inj) AND/OR VOMITING 1 ea NOTE XX 03/22/18 Miscellaneous 19:30 Information Glucose 15 gm Q15M PRN 03/22/18 (Glutose) PO DECREASED 19:30 GLUCOSE Glucose 22.5 gm Q15M PRN 03/22/18 (Glutose) PO DECREASED 19:30 GLUCOSE Dextrose 25 ml Q15M PRN 03/22/18 (D50w IV DECREASED 19:30 Syringe) GLUCOSE Dextrose 50 ml Q15M PRN 03/22/18 (D50w IV DECREASED 19:30 Syringe) GLUCOSE Glucagon 1 mg Q15M PRN 03/22/18 (Glucagen) IM DECREASED 19:30 GLUCOSE Glucose 15 gm Q15M PRN 03/22/18 (Glutose) BUCCAL 19:30 DECREASED GLUCOSE Procedures/MDM EKG, MONITORS, & DIAGNOSTIC IMAGING: EKG: I reviewed and interpreted a 12-lead EKG. Rhythm: A. fib with RVR ST Changes: No contiguous ST segment elevations T waves: No contiguous T wave inversions Impression: A. fib with RVR Repeat EKG: EKG: I reviewed and interpreted a 12-lead EKG. Rhythm: A. fib, rate controlled ST Changes: No contiguous ST segment elevations T waves: No contiguous T wave inversions Impression: [No evidence of acute cardiac ischemia] Chest x-ray: IMPRESSION: 1. Mild cardiomegaly. 2. Mild patchy bibasilar atelectasis with very small bilateral pleural effusions. RPTAT:AAJJ LAB INTERPRETATION: * No evidence of infection * Negative troponin, elevated BNP MEDICAL DECISION MAKING: Patient has atrial fibrillation with rapid ventricular response likely secondary to the poor medication compliance. The patient needs high risk stratification for anticoagulation and would likely be a candidate for Eliquis or Coumadin. Further stratification on inpatient basis is appropriate. Patient is to be rule out for acute coronary syndrome he may need volume management. He needs rate control medication in the emergency room setting given A. fib with RVR. ER COURSE: * Patient was given magnesium, Cardizem bolus, drip was ordered to the bedside but he is rate controlled around 90-110 after a bolus of 10 at this time. * The patient has good rate control. The patient has mild BNP elevation but at this time no indication for Lasix, inpatient volume management will be appropriate. CONSULTATION: [None] DISPOSITION PLAN: Telemetry admission for management of chest pain to rule out acute coronary syndrome, serial enzymes, risk stratification and consideration of provocative testing CONSULTATION: Accepting care team and consultations: I discussed the current laboratory data, diagnostic imaging and emergency care provided. Admitting team: Dr. Barkley Admitting team indication: Insurance directed Departure Diagnosis: Primary Impression: Atrial fibrillation with rapid ventricular response Additional Impression: Chest pain Chest pain type: unspecified Qualified Codes: R07.9 - Chest pain, unspecified Condition: Stable KLAUDIA COLE MD Mar 22, 2018 17:25
[2018-03-22] MEDS ORDERED: LISI-313 PO (17:39)
[2018-03-22] MEDS ORDERED: DULA1.5P SQ (17:49)
[2018-03-22] MEDS ORDERED: ACETAMINOPHEN 325 MG TAB PO PRN (18:30)
[2018-03-22] MEDS ORDERED: ONDANSETRON 4 MG INJ IV PRN ×2 (18:30→19:00)
[2018-03-22] MEDS ORDERED: GLUCAGON 1 MG INJ IM PRN (19:30)
[2018-03-22] MEDS ORDERED: DEXTROSE 50% 50 ML SYRINGE IV PRN ×2 (19:30)
[2018-03-22] MEDS ORDERED: GLUCOSE GEL 15 GRAM TUBE BUCCAL PRN (19:30)
[2018-03-22] MEDS ORDERED: GLUCOSE GEL 15 GRAM TUBE PO PRN ×2 (19:30)
[2018-03-22] MEDS: GUAIFENESIN/CODEINE 5ML CUP PO PRN (19:42)
[2018-03-22] MEDS: INSULIN ASPART [NOVOLOG] 3 ML PEN SC SCH (21:00)
[2018-03-22 23:09] VITALS: PULSE 126
[2018-03-22 23:21] VITALS: Ht 170.2 cm; Wt 80.9 kg
[2018-03-22 23:32] VITALS: BP 117/88; PULSE 125; RESP 18
--- NOTE | 2018-03-22 23:32 | HP ---
Date/Time of Note Date/Time of Note DATE: 03/22/18 TIME: 23:32 Assessment/Plan VTE Prophylaxis Pharmacological prophylaxis: apixaban Lines/Catheters IV [facility]from [facility] Saline Lock Assessment/Plan Assessment/Plan 62-year-old male with a history of hypertension, atrial fibrillation, diabetes, cardiomyopathy with severe systolic dysfunction with EF of 25% (2016) presents with palpitation secondary to A-fib with RVR PLAN Continue telemetry monitoring Patient status post diltiazem 10 mg IV x1 in the ER. Currently on amiodarone drip Start on beta-vamsi and oral anticoagulation Trend troponin Cardiology consult Insulin for management of diabetes Result Diagram: 03/22/18 1706 03/22/18 1706 Results 24hrs Laboratory Tests Test 03/22/18 17:06 03/22/18 21:07 White Blood Count 7.6 Red Blood Count 4.64 L Hemoglobin 14.1 Hematocrit 43.3 Mean Corpuscular Volume 93.3 Mean Corpuscular Hemoglobin 30.4 Mean Corpuscular Hemoglobin Concent 32.6 Red Cell Distribution Width 13.5 Platelet Count 232 Mean Platelet Volume 10.2 # Immature Granulocytes % 0.500 H Neutrophils % 64.4 Lymphocytes % 21.3 Monocytes % 9.9 Eosinophils % 3.2 Basophils % 0.7 Nucleated Red Blood Cells % 0.0 Immature Granulocytes # 0.040 H Neutrophils # 4.9 Lymphocytes # 1.6 Monocytes # 0.8 Eosinophils # 0.2 Basophils # 0.1 Nucleated Red Blood Cells # 0.0 Prothrombin Time 13.4 Prothrombin Time Ratio 1.0 INR International Normalized Ratio 1.01 Activated Partial Thromboplast Time 32.6 Sodium Level 137 Potassium Level 4.4 Chloride Level 104 Carbon Dioxide Level 28 Anion Gap 5 Blood Urea Nitrogen 17 Creatinine 0.77 Est Glomerular Filtrat Rate mL/min > 60 Glucose Level 180 Calcium Level 8.9 Troponin I 0.013 B-Type Natriuretic Peptide 2120 H Bedside Glucose 159 HPI/ROS Admit Date/Time Admit Date/Time Mar 22, 2018 at 18:27 Hx of Present Illness This is a 62-year-old male with a history of hypertension, atrial fibrillation, diabetes, cardiomyopathy with severe systolic dysfunction with EF of 25% (2016). Patient presented to ER complaining of palpitation. Also reported vague chest discomfort and shortness of breath. Patient noncompliant with his medications. When presented to ER, he was found to be in A-fib with RVR. He was given 10 mg IV diltiazem with some improvement. Currently admitted to telemetry unit and I have started him on amiodarone drip. PMH/Family/Social Past Medical History Medical History: other (See HPI) Medications Current Medications Diltiazem HCl 125 ml @ 5 mls/hr ONCE STAT IV ; Start 03/22/18 at 17:06; Stop 03/23/18 at 18:05 Ondansetron HCl (Zofran Inj) 4 mg ER BRIDGE PRN IV NAUSEA AND/OR VOMITING; Start 03/22/18 at 18:30; Stop 03/23/18 at 18:29 Acetaminophen (Tylenol Tab) 650 mg ER BRIDGE PRN PO MILD PAIN(1-3)OR ELEVATED TEMP; Start 03/22/18 at 18:30; Stop 03/23/18 at 18:29 Diagnostic Test (Pha) (Accu-Chek) 1 ea 02 XX ; Start 03/23/18 at 02:00 Insulin Aspart (Novolog Insulin Pen) NOVOLOG *MILD* ALGORITHM WITH MEALS BEDTIME SC ; Start 03/22/18 at 21:00 Ondansetron HCl (Zofran Inj) 4 mg Q6H PRN IV NAUSEA AND/OR VOMITING; Start 03/22/18 at 19:00 Miscellaneous Information 1 ea NOTE XX ; Start 03/22/18 at 19:30 Glucose (Glutose) 15 gm Q15M PRN PO DECREASED GLUCOSE; Start 03/22/18 at 19:30 Glucose (Glutose) 22.5 gm Q15M PRN PO DECREASED GLUCOSE; Start 03/22/18 at 19:30 Dextrose (D50w Syringe) 25 ml Q15M PRN IV DECREASED GLUCOSE; Start 03/22/18 at 19:30 Dextrose (D50w Syringe) 50 ml Q15M PRN IV DECREASED GLUCOSE; Start 03/22/18 at 19:30 Glucagon (Glucagen) 1 mg Q15M PRN IM DECREASED GLUCOSE; Start 03/22/18 at 19:30 Glucose (Glutose) 15 gm Q15M PRN BUCCAL DECREASED GLUCOSE; Start 03/22/18 at 19:30 Guaifenesin/ Codeine Phosphate (Robitussin Ac Liquid Cup) 5 ml Q4H PRN PO cough Last administered on 03/22/18at 19:42; Admin Dose 5 ML; Start 03/22/18 at 19:30 Coded Allergies: No Known Allergy (Unverified , 03/22/18) Past Surgical History Past Surgical Hx: other (See HPI) Family History Significant Family History: no pertinent family hx Social History Alcohol Use: none Smoking Status: Never smoker Drug Use: none Exam/Review of Systems Vital Signs Vitals Vital Signs Date Temp Pulse Resp B/P (MAP) Pulse Ox O2 O2 Flow FiO2 Time Delivery Rate 03/22/18 97.5 107 22 100/81 100 Nasal 2.0 22:48 (87) Cannula Exam Constitutional: other (No acute distress) Head: normocephalic, atraumatic Eyes: PERRL Respiratory: clear to auscultation, normal air movement Cardiovascular: irregular rhythm Gastrointestinal: soft Extremities: normal pulses SALINA WASSERMAN MD Mar 22, 2018 23:32
[2018-03-23] VITALS (12 sets, daily range): BP systolic 107–146; BP diastolic 71–95; PULSE 88–133; RESP 17–19
[2018-03-23] MEDS: AMIODARONE 900 MG in DEXTROSE 5% 482 ML IV SCH ×3 (01:16→23:15)
[2018-03-23] MEDS: ACCU-CHEK XX SCH (02:00)
[2018-03-23] MEDS: GUAIFENESIN/CODEINE 5ML CUP PO PRN ×4 (08:12→22:14)
[2018-03-23] MEDS: INSULIN ASPART [NOVOLOG] 3 ML PEN SC SCH ×4 (08:22→20:54)
[2018-03-23] MEDS ORDERED: METOPROLOL 25 MG TAB PO SCH (09:00)
[2018-03-23] MEDS ORDERED: DIGOXIN 500 MCG INJ IV ONE (13:00)
--- NOTE | 2018-03-23 13:13 | PN ---
Date/Time of Note Date/Time of Note DATE: 03/23/18 TIME: 12:56 Assessment/Plan VTE Prophylaxis Risk score (from Ns)>0 risk: 2 SCD applied (from Ns): Yes Pharmacological prophylaxis: rivaroxaban Lines/Catheters IV Catheter Type (from [facility]): Saline Lock Urinary Cath still in place: No Assessment/Plan Assessment/Plan 1. Atrial fibrillation with rapid ventricular response, on amiodarone drip, add coreg and digoxin, on xarelto, cardiology consult 2. CHF, acute on chronic, systolic, coreg, will add ROMIE inhibitor if tolerates coreg 3. Dialated cardiomyopathy, needs elective LHC per cardiology 4. Acute bronchitis/pneumonia, augmentin 5. Type 2 diabetes. metformin/ISS 6. Essential hypertension, controlled Result Diagram: 03/22/18 1706 03/22/18 1706 Results 24hrs Laboratory Tests Test 03/22/18 17:06 03/22/18 21:07 03/22/18 22:58 03/23/18 02:11 White Blood Count 7.6 Red Blood Count 4.64 L Hemoglobin 14.1 Hematocrit 43.3 Mean Corpuscular 93.3 Volume Mean Corpuscular 30.4 Hemoglobin Mean Corpuscular 32.6 Hemoglobin Concent Red Cell 13.5 Distribution Width Platelet Count 232 Mean Platelet Volume 10.2 # Immature 0.500 H Granulocytes % Neutrophils % 64.4 Lymphocytes % 21.3 Monocytes % 9.9 Eosinophils % 3.2 Basophils % 0.7 Nucleated Red Blood 0.0 Cells % Immature 0.040 H Granulocytes # Neutrophils # 4.9 Lymphocytes # 1.6 Monocytes # 0.8 Eosinophils # 0.2 Basophils # 0.1 Nucleated Red Blood 0.0 Cells # Prothrombin Time 13.4 Prothrombin Time 1.0 Ratio INR International 1.01 Normalized Ratio Activated 32.6 Partial Thromboplast Time Sodium Level 137 Potassium Level 4.4 Chloride Level 104 Carbon Dioxide Level 28 Anion Gap 5 Blood Urea Nitrogen 17 Creatinine 0.77 Est Glomerular > 60 Filtrat Rate mL/min Glucose Level 180 Calcium Level 8.9 Troponin I 0.013 0.020 B-Type Natriuretic 2120 H Peptide Bedside Glucose 159 255 H Creatine Kinase 142 Creatine Kinase 1.6 Index Creatinine Kinase MB 2.25 (Mass) Test 03/23/18 05:59 03/23/18 08:11 1/18/19 12:20 Creatine Kinase 102 Creatine Kinase 1.8 Index Creatinine Kinase MB 1.81 (Mass) Troponin I 0.018 Bedside Glucose 176 258 H Subjective 24 Hr Interval Summary Free Text/Dictation cough with yellowish sputum for one week Exam/Review of Systems Vital Signs Vitals Vital Signs Date Temp Pulse Resp B/P (MAP) Pulse Ox O2 O2 Flow FiO2 Time Delivery Rate 03/23/18 121 12:09 03/23/18 97.6 18 118/76 100 Nasal 11:38 (90) Cannula 03/22/18 2.0 23:10 Intake and Output 03/22/18 03/22/18 03/23/18 1515:00 23:00 07:00 IntakeIntake Total 150 ml BalanceBalance 150 ml Exam Constitutional: alert, oriented, well developed Psych: no complaints, nl mood/affect Head: normocephalic, atraumatic Eyes: nl conjunctiva, EOMI, nl lids, nl sclera, PERRL ENMT: nl external ears & nose, nl lips & teeth, nl nasal mucosa & septum Neck: supple, non-tender Respiratory: clear to auscultation, normal air movement Cardiovascular: nl pulses, irregular rhythm; No bruits, No diastolic murmur, No edema, No gallop, No jugular venous distention (JVD), No murmurs/extra sounds, No rub, No systolic murmur, No S3, No S4, No other Gastrointestinal: soft, nl liver, spleen, non-tender Musculoskeletal: nl extremities to inspection Neurological: CRATE OPENER II-XII intact, nl mental status, nl speech, nl strength Skin: nl turgor Medications Medications Current Medications Diltiazem HCl 125 ml @ 5 mls/hr ONCE STAT IV ; Start 03/22/18 at 17:06; Stop 03/23/18 at 18:05 Diagnostic Test (Pha) (Accu-Chek) 1 ea 02 XX ; Start 03/23/18 at 02:00 Insulin Aspart (Novolog Insulin Pen) NOVOLOG *MILD* ALGORITHM WITH MEALS BEDTIME SC Last administered on 03/23/18at 12:24; Admin Dose 3 UNIT; Start 03/22/18 at 21:00 Ondansetron HCl (Zofran Inj) 4 mg Q6H PRN IV NAUSEA AND/OR VOMITING; Start 03/22/18 at 19:00 Miscellaneous Information 1 ea NOTE XX ; Start 03/22/18 at 19:30 Glucose (Glutose) 15 gm Q15M PRN PO DECREASED GLUCOSE; Start 03/22/18 at 19:30 Glucose (Glutose) 22.5 gm Q15M PRN PO DECREASED GLUCOSE; Start 03/22/18 at 19:30 Dextrose (D50w Syringe) 25 ml Q15M PRN IV DECREASED GLUCOSE; Start 03/22/18 at 19:30 Dextrose (D50w Syringe) 50 ml Q15M PRN IV DECREASED GLUCOSE; Start 03/22/18 at 19:30 Glucagon (Glucagen) 1 mg Q15M PRN IM DECREASED GLUCOSE; Start 03/22/18 at 19:30 Glucose (Glutose) 15 gm Q15M PRN BUCCAL DECREASED GLUCOSE; Start 03/22/18 at 19:30 Guaifenesin/ Codeine Phosphate (Robitussin Ac Liquid Cup) 5 ml Q4H PRN PO cough Last administered on 03/23/18at 08:12; Admin Dose 5 ML; Start 03/22/18 at 19:30 Amiodarone HCl 900 mg/Dextrose 500 ml @ 0 mls/hr Q0M IV Last administered on 03/23/18at 08:23; Admin Dose 16.7 MLS/HR; Start 03/23/18 at 01:00 Metoprolol Tartrate (Lopressor) 25 mg BID PO ; Start 03/23/18 at 09:00 Rivaroxaban (Xarelto) 10 mg WITH DINNER PO ; Start 03/23/18 at 17:55 CLINT COOPER MD Mar 23, 2018 13:12
[2018-03-23] MEDS: RIVAROXABAN 10 MG TABLET PO SCH (17:21)
[2018-03-23] MEDS: metFORMIN 500 MG TAB PO SCH (17:21)
[2018-03-23] MEDS ORDERED: METOPROLOL 5 MG INJ IV PRN (17:30)
[2018-03-23] MEDS: DIGOXIN 500 MCG INJ IV SCH (18:20)
--- NOTE | 2018-03-23 19:26 | CONS ---
DATE OF ADMISSION: 03/22/2018 DATE OF CONSULTATION: 03/23/2018 REASON FOR CONSULTATION: Chest pain, atrial fibrillation with rapid ventricular response. REQUESTING PHYSICIAN: Dr. Cooper from the hospitalist service. HISTORY OF PRESENT ILLNESS: Mr. Cade is a 62-year-old male with a history of hypertension, atri al fibrillation, diabetes mellitus, cardiomyopathy, severe systolic dysfunction with last known EF of 25% in 2017 who presented with complaints of palpitations and substernal chest pain. Upon arrival, temperature of 98.3, blood pressure 136/80, pulse 42, respiratory rate 18, satting 99%. The patient' s labs revealed a white count of 7.6, hemoglobin 40.1, platelet count 232, sodium of 137, potassium 4 .4, creatinine 0.77, BUN 17, BNP of 2120, troponin negative, INR of 1.0. The patient underwent a nestor st x-ray revealing mild cardiomegaly, mild patchy bibasilar atelectasis, very small bilateral pleural effusions. The patient's electrocardiogram revealed atrial fibrillation at a rate of 96 with normal axis, normal intervals and nonspecific ST abnormalities diffusely. The patient was subsequently adm itted to the floor and since admitted to the floor, continues to remain in atrial fibrillation with s ome rapid response to the 120s. The patient has been placed on Xarelto with low-dose beta vamsi. Additionally, the patient is on Amiodarone IV. PAST MEDICAL HISTORY: As above in HPI. MEDICATIONS CURRENTLY IN HOSPITAL: 1. Digoxin 0.125 mg daily. 2. Xarelto 10 mg daily. 3. Metformin 500 mg b.i.d. 4. Metoprolol 25 mg p.o. b.i.d. 5. Amiodarone IV. ALLERGIES: NO KNOWN DRUG ALLERGIES. SOCIAL HISTORY: No current tobacco, ETOH or illicit drug use. FAMILY HISTORY: No history of sudden cardiac or early CAD. REVIEW OF SYSTEMS: As above in HPI. CONSTITUTIONAL: No fevers or chills. PULMONARY: Shortness of breath. CARDIOVASCULAR: ____ chest pain or palpitations. GASTROINTESTINAL: No vomiting. GENITOURINARY: No hematuria. MUSCULOSKELETAL: Degenerative joint disease. PSYCHIATRIC: The patient has depression. NEUROLOGIC: No documented history of CVA. PHYSICAL EXAMINATION VITAL SIGNS: Temperature 97.5, blood pressure 140/95, pulse 118, respiratory rate 18, saturating 100 %. GENERAL: The patient is alert, awake, in no acute distress. NECK: JVP approximately 8 to 9 cm of water. CHEST: Fair air movement throughout. HEART: Tachycardic, irregularly irregular, I/ systolic murmur, nondisplaced PMI. ABDOMEN: Positive bowel sounds, soft. EXTREMITIES: No significant pitting edema, 1+ pulses bilateral posterior tibial. LABORATORY DATA: As above in HPI. No further labs for my review at this time. IMAGING STUDIES: As above in HPI. No further imaging studies for my review at this time. IMPRESSION: 1. Atrial fibrillation with rapid ventricular response. 2. Chest pain in the setting of atrial fibrillation and rapid rate response. 3. Congestive heart failure, systolic, likely acute on chronic. 4. History of cardiomyopathy with severely depressed left ventricular ejection fraction, last EF is 25% by echo in 2017. 5. Elevated blood glucose, diabetes. There is increased BNP. RECOMMENDATIONS: 1. At this time, I would maintain the patient on telemetry monitoring to follow rhythm and rate clos ernestina. 2. I would complete the patient's rule out for myocardial infarction to ensure the patient's chest p ain is not due to the invoked acute coronary syndrome in setting of atrial fibrillation with rapid ve ntricular response. 3. Continue the patient's current digoxin and I would additionally continue the patient's beta block er with up titration to improve overall heart rate control. We will give patient digoxin load to imp rove rate acutely. The patient is to receive one dose. We will give a second digoxin doses. Otherw ise, continue the patient's amiodarone at this time. We are going to attempt to convert patient's si nus rhythm. 4. Continue the patient's Xarelto, but I would assess the patient's dose to ensure it is correct. 5. We will reassess patient's ejection fraction with a 2D echo and we will initiate the patient robin tionally on low dose afterload reduction. Thank you for allowing me to take part in the care of this patient. I will continue to follow very c losely with you with recommendations to be made as the patient progresses through inpatient hospital clinical course. Dictated By: MARTINEZ JEROME/MAEGAN Conf#: [id number] [facility]#: [id number] CC: CLINT COOPER MD; SALINA WASSERMAN MD;*End*
[2018-03-23] MEDS: METOPROLOL (XL) 25 MG TAB PO SCH (20:53)
[2018-03-24] VITALS (12 sets, daily range): BP systolic 120–160; BP diastolic 51–90; PULSE 59–116; RESP 18–19
[2018-03-24] MEDS: DIGOXIN 500 MCG INJ IV SCH (00:18)
[2018-03-24] MEDS: ACCU-CHEK XX SCH (02:00)
[2018-03-24] MEDS: metFORMIN 500 MG TAB PO SCH ×2 (08:48→17:16)
[2018-03-24] MEDS: METOPROLOL (XL) 25 MG TAB PO SCH ×2 (08:48→21:29)
[2018-03-24] MEDS: INSULIN ASPART [NOVOLOG] 3 ML PEN SC SCH ×4 (08:52→21:00)
[2018-03-24] MEDS: LISINOPRIL 5 MG TAB PO SCH (09:04)
[2018-03-24] MEDS: GUAIFENESIN/CODEINE 5ML CUP PO PRN ×3 (09:07→21:28)
[2018-03-24] MEDS: DIGOXIN 0.125 MG TAB PO SCH (13:19)
--- NOTE | 2018-03-24 14:03 | CONS ---
Date/Time of Note Date/Time of Note DATE: 03/24/18 TIME: 14:00 Assessment/Plan Assessment/Plan Assessment/Plan 1. Atrial fibrillation with rapid ventricular response - in a. fib now - rate controlled - will monitor clinically. 2. Chest pain in the setting of atrial fibrillation and rapid rate response- no CP now. 3. Congestive heart failure, systolic, likely acute on chronic- con't diuresis - better now. 4. History of cardiomyopathy with severely depressed left ventricular ejection fraction, last EF is 25% by echo in 2017 - improved fluid status. 5. Elevated blood glucose, diabetes. There is increased BNP.Still high - insulin Rx. Result Diagram: 03/24/18 0726 03/24/18 0726 Results 24hrs Laboratory Tests Test 03/23/18 17:22 03/23/18 20:23 03/24/18 07:26 03/24/18 08:46 Bedside Glucose 153 170 240 H White Blood Count 9.6 # Red Blood Count 4.26 L Hemoglobin 13.1 L Hematocrit 40.0 L Mean Corpuscular 93.9 Volume Mean Corpuscular 30.8 Hemoglobin Mean Corpuscular 32.8 Hemoglobin Concent Red Cell 13.4 Distribution Width Platelet Count 190 Mean Platelet Volume 10.9 H Immature 0.400 Granulocytes % Neutrophils % 74.8 Lymphocytes % 15.2 Monocytes % 6.9 Eosinophils % 2.3 Basophils % 0.4 Nucleated Red Blood 0.0 Cells % Immature 0.040 H Granulocytes # Neutrophils # 7.2 Lymphocytes # 1.5 Monocytes # 0.7 Eosinophils # 0.2 Basophils # 0.0 Nucleated Red Blood 0.0 Cells # Sodium Level 135 Potassium Level 4.2 Chloride Level 101 Carbon Dioxide Level 28 Anion Gap 6 Blood Urea Nitrogen 15 Creatinine 0.67 Est Glomerular > 60 Filtrat Rate mL/min Glucose Level 166 Hemoglobin A1c 8.4 H Calcium Level 8.7 Triglycerides Level 86 Cholesterol Level 175 LDL Cholesterol, 130 Calculated HDL Cholesterol 28 L Cholesterol/HDL 6.2 Ratio Thyroid Stimulating 1.210 Hormone (TSH) Test 03/24/18 12:27 Bedside Glucose 213 Consultation Date/Type/Reason Admit Date/Time Mar 22, 2018 at 18:27 Initial Consult Date 24 HR Interval Summary Free Text/Dictation NO acute events - did not convert to sinus - will finish amio gtt and add BB as tolerated. ROS: No fever, no chills, no nausea, no vomiting, no diarrhea/constipation No recent weight changes No chest pain, no PND, no orthopnea - improved sob. No dizziness, blurred vision No thirst, no heat or cold intolerance Exam/Review of Systems Vital Signs Vitals Vital Signs Date Temp Pulse Resp B/P (MAP) Pulse Ox O2 O2 Flow FiO2 Time Delivery Rate 03/24/18 96 12:18 03/24/18 98.1 19 120/83 97 11:50 (95) 03/23/18 Nasal 15:15 Cannula 03/22/18 2.0 23:10 Intake and Output 03/23/18 03/23/18 03/24/18 1515:00 23:00 07:00 IntakeIntake Total 1500 ml 800 ml BalanceBalance 1500 ml 800 ml Exam General: WN/WD/NAD, AOx 3 HEENT: Unicetric/atraumatic/EOMI (follow commands) NECK: JVD elevated, no thyromegaly Lymph: no lymphadenopathy HEART: irregular with no S3, II/ systolic murmur at apex, PMI L LUNGS: Coarse sounds ABD: soft, NT, ND, +BS : Intact Neuro: non focal SKIN: chronic changes EXT: trace edema Medications Medications Current Medications Diagnostic Test (Pha) (Accu-Chek) 1 ea 02 XX ; Start 03/23/18 at 02:00 Insulin Aspart (Novolog Insulin Pen) NOVOLOG *MILD* ALGORITHM WITH MEALS BEDTIME SC Last administered on 03/24/18at 12:34; Admin Dose 2 UNIT; Start 03/22/18 at 21:00 Ondansetron HCl (Zofran Inj) 4 mg Q6H PRN IV NAUSEA AND/OR VOMITING; Start 03/22/18 at 19:00 Miscellaneous Information 1 ea NOTE XX ; Start 03/22/18 at 19:30 Glucose (Glutose) 15 gm Q15M PRN PO DECREASED GLUCOSE; Start 03/22/18 at 19:30 Glucose (Glutose) 22.5 gm Q15M PRN PO DECREASED GLUCOSE; Start 03/22/18 at 19:30 Dextrose (D50w Syringe) 25 ml Q15M PRN IV DECREASED GLUCOSE; Start 03/22/18 at 19:30 Dextrose (D50w Syringe) 50 ml Q15M PRN IV DECREASED GLUCOSE; Start 03/22/18 at 19:30 Glucagon (Glucagen) 1 mg Q15M PRN IM DECREASED GLUCOSE; Start 03/22/18 at 19:30 Glucose (Glutose) 15 gm Q15M PRN BUCCAL DECREASED GLUCOSE; Start 03/22/18 at 19:30 Guaifenesin/ Codeine Phosphate (Robitussin Ac Liquid Cup) 5 ml Q4H PRN PO cough Last administered on 03/24/18at 13:19; Admin Dose 5 ML; Start 03/22/18 at 19:30 Amiodarone HCl 900 mg/Dextrose 500 ml @ 0 mls/hr Q0M IV Last administered on 03/23/18at 23:15; Admin Dose 16.7 MLS/HR; Start 03/23/18 at 01:00 Rivaroxaban (Xarelto) 10 mg WITH DINNER PO Last administered on 03/23/18at 17:21; Admin Dose 10 MG; Start 03/23/18 at 17:55 Digoxin (Digoxin) 0.125 mg DAILY@13 PO Last administered on 03/24/18 13:19; Admin Dose 0.125 MG; Start 03/24/18 at 13:00 Metformin HCl (Glucophage) 500 mg BID WITH MEALS PO Last administered on 03/24/18 08:48; Admin Dose 500 MG; Start 03/23/18 at 17:55 Metoprolol Succinate (Toprol Xl) 25 mg BID PO Last administered on 03/24/18at 08:48; Admin Dose 25 MG; Start 03/23/18 at 21:00 Metoprolol Tartrate (Lopressor) 5 mg Q4H PRN IV HR>110 Hold SBP<100; Start 03/23/18 at 17:30 Lisinopril (Zestril) 2.5 mg DAILY PO Last administered on 03/24/18at 09:04; Admin Dose 2.5 MG; Start 03/24/18 at 09:00 HILLARY PETERS MD Mar 24, 2018 14:03
--- NOTE | 2018-03-24 14:59 | RADRPT ---
Echocardiogram Report Patient Name: MCKENNA LOVE Gender: Male Date: 1955 Study Date: 24-Mar-2018 Chemotherapist: Sylvester Hadley [facility] Location: [address] Ref. Physician: MARTINEZ GUERRERO Quality: Adequate Procedures: Transthoracic echocardiogram with complete 2D, M-Mode, and doppler examination. Indications: Congestive Heart Failure. 2D/M Mode Doppler Measurement Value Normal Ranges Measurement Value Normal Ranges LVIDd 2D 5.9 3.5 - 5.6 cm AV Peak Thanh 1.7 m/sec LVIDs 2D 4.9 2.1 - 4.1 cm AV Peak PG 11.0 mmHg LVPWd 2D 1.0 0.6 - 1.1 cm LVOT Peak Thanh 0.9 m/sec IVSd 2D 1.0 0.6 - 1.1 cm LVOT Peak PG 3.0 mmHg AoR Diam 2D 2.8 2.0 - 3.7 cm TR Peak Thanh 2.9 m/sec LA/Ao 2D 1 0 - 1 TR Peak PG 33.0 mmHg LA Dimen 2D 4.1 2.3 - 4.0 cm RVSP 33.0 mmHg RA Pressure 8.0 Findings Left Ventricle: Normal left ventricular cavity size. Normal left ventricular wall thickness. Severe global left ventricular systolic dysfunction. Ejection fraction is visually estimated at 30 %. Right Ventricle: Normal right ventricular size. Normal right ventricular systolic function. Left Atrium: The left atrium is normal in size. Right Atrium: The right atrium is normal in size. Mitral Valve: Normal appearance of the mitral valve. Mild mitral valve regurgitation. Aortic Valve: Normal appearance of the aortic valve. Tricuspid Valve: Normal appearance of the tricuspid valve. Estimated peak PA systolic pressure 41 mmHg. There is mild tricuspid regurgitation. Pericardium: Normal pericardium with no significant pericardial effusion. Aorta: Normal aortic root. IVC: Dilated IVC with respiratory collapse consistent with elevated right atrial pressure. Conclusions Normal left ventricular cavity size. Normal left ventricular wall thickness. Severe global left ventricular systolic dysfunction. Ejection fraction is visually estimated at 30 %. Normal appearance of the mitral valve. Mild mitral valve regurgitation. Normal appearance of the aortic valve. Normal appearance of the tricuspid valve. Estimated peak PA systolic pressure 41 mmHg. There is mild tricuspid regurgitation. Electronically Signed By: Huy Albright 24-Mar-2018 14:59:07 -0800 Patient Name: MCKENNA LOVE Study Date: 24-Mar-2018 [id number]
[2018-03-24] MEDS: RIVAROXABAN 10 MG TABLET PO SCH (17:16)
--- NOTE | 2018-03-24 17:17 | PN ---
Date/Time of Note Date/Time of Note DATE: 03/24/18 TIME: 17:16 Assessment/Plan VTE Prophylaxis Risk score (from Ns)>0 risk: 2 SCD applied (from Ns): No SCD contraindicated: low risk/ambulating Pharmacological prophylaxis: LMWH Lines/Catheters IV C[facility]ter Type (from [facility]): Peripheral IV Urinary Cath still in place: No Assessment/Plan Hospital Course Assessment and plan 1. Acute on chronic A. fib with RVR, mod stable continue rhythm/rate control 2. Nonadherence, restart anticoagulation if adherence can be obtained 3. Chronic cardiomyopathy, ischemic? 4. Chronic hypertension 5. Type 2 diabetes 6. Anemia 7. Recent bronchitis? Subjective: Events noted patient feels somewhat better Objective: A. fib rate controlled Physical exam No pallor JVD Irregular Clear Benign No edema Result Diagram: 03/24/18 0726 03/24/18 0726 Results 24hrs Laboratory Tests Test 03/23/18 17:22 03/23/18 20:23 03/24/18 07:26 03/24/18 08:46 Bedside Glucose 153 170 240 H White Blood Count 9.6 # Red Blood Count 4.26 L Hemoglobin 13.1 L Hematocrit 40.0 L Mean Corpuscular 93.9 Volume Mean Corpuscular 30.8 Hemoglobin Mean Corpuscular 32.8 Hemoglobin Concent Red Cell 13.4 Distribution Width Platelet Count 190 Mean Platelet Volume 10.9 H Immature 0.400 Granulocytes % Neutrophils % 74.8 Lymphocytes % 15.2 Monocytes % 6.9 Eosinophils % 2.3 Basophils % 0.4 Nucleated Red Blood 0.0 Cells % Immature 0.040 H Granulocytes # Neutrophils # 7.2 Lymphocytes # 1.5 Monocytes # 0.7 Eosinophils # 0.2 Basophils # 0.0 Nucleated Red Blood 0.0 Cells # Sodium Level 135 Potassium Level 4.2 Chloride Level 101 Carbon Dioxide Level 28 Anion Gap 6 Blood Urea Nitrogen 15 Creatinine 0.67 Est Glomerular > 60 Filtrat Rate mL/min Glucose Level 166 Hemoglobin A1c 8.4 H Calcium Level 8.7 Triglycerides Level 86 Cholesterol Level 175 LDL Cholesterol, 130 Calculated HDL Cholesterol 28 L Cholesterol/HDL 6.2 Ratio Thyroid Stimulating 1.210 Hormone (TSH) Test 03/24/18 12:27 Bedside Glucose 213 Exam/Review of Systems Vital Signs Vitals Vital Signs Date Temp Pulse Resp B/P (MAP) Pulse Ox O2 O2 Flow FiO2 Time Delivery Rate 03/24/18 116 16:04 03/24/18 99.1 19 160/90 97 15:58 (113) 03/23/18 Nasal 15:15 Cannula 03/22/18 2.0 23:10 Intake and Output 03/23/18 03/23/18 03/24/18 1515:00 23:00 07:00 IntakeIntake Total 1500 ml 800 ml BalanceBalance 1500 ml 800 ml Medications Medications Current Medications Diagnostic Test (Pha) (Accu-Chek) 1 ea 02 XX ; Start 03/23/18 at 02:00 Insulin Aspart (Novolog Insulin Pen) NOVOLOG *MILD* ALGORITHM WITH MEALS BEDTI ME SC Last administered on 03/24/18at 12:34; Admin Dose 2 UNIT; Start 03/22/18 at 21:00 Ondansetron HCl (Zofran Inj) 4 mg Q6H PRN IV NAUSEA AND/OR VOMITING; Start 03/22/18 at 19:00 Miscellaneous Information 1 ea NOTE XX ; Start 03/22/18 at 19:30 Glucose (Glutose) 15 gm Q15M PRN PO DECREASED GLUCOSE; Start 03/22/18 at 19:30 Glucose (Glutose) 22.5 gm Q15M PRN PO DECREASED GLUCOSE; Start 03/22/18 at 19:30 Dextrose (D50w Syringe) 25 ml Q15M PRN IV DECREASED GLUCOSE; Start 03/22/18 at 19:30 Dextrose (D50w Syringe) 50 ml Q15M PRN IV DECREASED GLUCOSE; Start 03/22/18 at 19:30 Glucagon (Glucagen) 1 mg Q15M PRN IM DECREASED GLUCOSE; Start 03/22/18 at 19:30 Glucose (Glutose) 15 gm Q15M PRN BUCCAL DECREASED GLUCOSE; Start 03/22/18 at 19:30 Guaifenesin/ Codeine Phosphate (Robitussin Ac Liquid Cup) 5 ml Q4H PRN PO cough Last administered on 03/24/18at 13:19; Admin Dose 5 ML; Start 03/22/18 at 19:30 Amiodarone HCl 900 mg/Dextrose 500 ml @ 0 mls/hr Q0M IV Last administered on 03/23/18at 23:15; Admin Dose 16.7 MLS/HR; Start 03/23/18 at 01:00 Rivaroxaban (Xarelto) 10 mg WITH DINNER PO Last administered on 03/23/18at 17:21; Admin Dose 10 MG; Start 03/23/18 at 17:55 Digoxin (Digoxin) 0.125 mg DAILY@13 PO Last administered on 03/24/18 13:19; Admin Dose 0.125 MG; Start 03/24/18 at 13:00 Metformin HCl (Glucophage) 500 mg BID WITH MEALS PO Last administered on 03/24/18at 08:48; Admin Dose 500 MG; Start 03/23/18 at 17:55 Metoprolol Succinate (Toprol Xl) 25 mg BID PO Last administered on 03/24/18at 08:48; Admin Dose 25 MG; Start 03/23/18 at 21:00 Metoprolol Tartrate (Lopressor) 5 mg Q4H PRN IV HR>110 Hold SBP<100; Start 03/23/18 at 17:30 Lisinopril (Zestril) 2.5 mg DAILY PO Last administered on 03/24/18at 09:04; Admin Dose 2.5 MG; Start 03/24/18 at 09:00 ABRAM COREAS MD Mar 24, 2018 17:17
[2018-03-24] MEDS ORDERED: DOCUSATE SODIUM 100 MG CAP PO PRN (17:30)
[2018-03-24] MEDS: FAMOTIDINE 20 MG TAB PO SCH (17:53)
[2018-03-24] MEDS ORDERED: INSULIN GLARGINE [LANTus] (100 UNITS/ML) SYG SC SCH (20:00)
[2018-03-25] VITALS (10 sets, daily range): BP systolic 116–137; BP diastolic 70–77; PULSE 68–101; RESP 15–20
[2018-03-25] MEDS: ACCU-CHEK XX SCH (02:00)
[2018-03-25] MEDS: INSULIN ASPART [NOVOLOG] 3 ML PEN SC SCH ×4 (07:50→22:10)
[2018-03-25] MEDS: metFORMIN 500 MG TAB PO SCH ×2 (08:01→17:32)
[2018-03-25] MEDS: FAMOTIDINE 20 MG TAB PO SCH (08:02)
[2018-03-25] MEDS: LISINOPRIL 5 MG TAB PO SCH (08:02)
[2018-03-25] MEDS: METOPROLOL (XL) 25 MG TAB PO SCH ×2 (08:02→21:00)
[2018-03-25] MEDS ORDERED: MAGNESIUM SULFATE 3 GM in DEXTROSE 5% 100 ML IVPB ONE (11:30)
--- NOTE | 2018-03-25 12:10 | CONS ---
Date/Time of Note Date/Time of Note DATE: 03/25/18 TIME: 12:08 Assessment/Plan Assessment/Plan Assessment/Plan 1. Atrial fibrillation with rapid ventricular response - in a. fib now - rate controlled - will monitor clinically. BETTER now. 2. Chest pain in the setting of atrial fibrillation and rapid rate response- no CP now. No recent re-stratification - gutierrez facilitate stress test when pt is able to lay flat. 3. Congestive heart failure, systolic, likely acute on chronic- con't diuresis - better now. Responed. 4. History of cardiomyopathy with severely depressed left ventricular ejection fraction, last EF is 25% by echo in 2017 - improved fluid status. 5. Elevated blood glucose, diabetes. There is increased BNP.Still high - insulin Rx. Result Diagram: 03/25/18 0608 03/25/18 0608 Results 24hrs Laboratory Tests Test 03/24/18 12:27 03/24/18 17:14 03/24/18 21:19 03/25/18 06:08 Bedside Glucose 213 172 177 White Blood Count 15.7 #H Red Blood Count 4.37 L Hemoglobin 13.5 L Hematocrit 40.8 L Mean Corpuscular 93.4 Volume Mean Corpuscular 30.9 Hemoglobin Mean Corpuscular 33.1 Hemoglobin Concent Red Cell 13.2 Distribution Width Platelet Count 202 Mean Platelet Volume 10.8 H Immature 0.500 H Granulocytes % Neutrophils % 78.5 H Lymphocytes % 12.4 L Monocytes % 7.9 Eosinophils % 0.4 Basophils % 0.3 Nucleated Red Blood 0.0 Cells % Immature 0.080 H Granulocytes # Neutrophils # 12.3 H Lymphocytes # 1.9 Monocytes # 1.2 H Eosinophils # 0.1 Basophils # 0.0 Nucleated Red Blood 0.0 Cells # Sodium Level 136 Potassium Level 4.1 Chloride Level 96 L Carbon Dioxide Level 33 H Anion Gap 7 Blood Urea Nitrogen 14 Creatinine 0.73 Est Glomerular > 60 Filtrat Rate mL/min Glucose Level 148 Calcium Level 8.8 Magnesium Level 1.5 L Total Bilirubin 2.0 H Direct Bilirubin 0.00 Indirect Bilirubin 2.0 H Aspartate Amino 43 Transf (AST/SGOT) Alanine 72 H Aminotransferase (AL T/SGPT) Alkaline Phosphatase 93 Troponin I 0.019 Total Protein 7.0 Albumin 3.4 Globulin 3.60 H Albumin/Globulin 0.94 Ratio Digoxin Level 0.7 L Test 03/25/18 07:46 03/25/18 11:27 Bedside Glucose 168 270 H Consultation Date/Type/Reason Admit Date/Time Mar 22, 2018 at 18:27 Initial Consult Date 24 HR Interval Summary Free Text/Dictation No recent re-stratification - gutierrez facilitate stress test when pt is able to lay flat. ROS: No fever, no chills, no nausea, no vomiting, no diarrhea/constipation No recent weight changes No chest pain, no PND, no orthopnea - improved SOB No dizziness, blurred vision No thirst, no heat or cold intolerance Exam/Review of Systems Vital Signs Vitals Vital Signs Date Temp Pulse Resp B/P (MAP) Pulse Ox O2 O2 Flow FiO2 Time Delivery Rate 03/25/18 90 12:03 03/25/18 98.7 16 116/76 98 Room Air 11:45 (89) 03/22/18 2.0 23:10 Intake and Output 03/24/18 03/24/18 03/25/18 1414:59 22:59 06:59 IntakeIntake Total 750 ml 550 ml BalanceBalance 750 ml 550 ml Exam General: WN/WD/NAD, AOx 3 HEENT: Unicetric/atraumatic/EOMI (follows commands) NECK: JVD elevated, no thyromegaly Lymph: no lymphadenopathy HEART: irregular with no S3, II/ systolic murmur at apex LUNGS: Coarse sounds ABD: soft, NT, ND, +BS : Intact Neuro: non focal SKIN: chronic changes EXT: 2+ edema Medications Medications Current Medications Diagnostic Test (Pha) (Accu-Chek) 1 ea 02 XX ; Start 03/23/18 at 02:00 Insulin Aspart (Novolog Insulin Pen) NOVOLOG *MILD* ALGORITHM WITH MEALS BEDTIME SC Last administered on 03/25/18at 11:28; Admin Dose 4 UNIT; Start 03/22/18 at 21:00 Ondansetron HCl (Zofran Inj) 4 mg Q6H PRN IV NAUSEA AND/OR VOMITING; Start 03/22/18 at 19:00 Miscellaneous Information 1 ea NOTE XX ; Start 03/22/18 at 19:30 Glucose (Glutose) 15 gm Q15M PRN PO DECREASED GLUCOSE; Start 03/22/18 at 19:30 Glucose (Glutose) 22.5 gm Q15M PRN PO DECREASED GLUCOSE; Start 03/22/18 at 19:30 Dextrose (D50w Syringe) 25 ml Q15M PRN IV DECREASED GLUCOSE; Start 03/22/18 at 19:30 Dextrose (D50w Syringe) 50 ml Q15M PRN IV DECREASED GLUCOSE; Start 03/22/18 at 19:30 Glucagon (Glucagen) 1 mg Q15M PRN IM DECREASED GLUCOSE; Start 03/22/18 at 19:30 Glucose (Glutose) 15 gm Q15M PRN BUCCAL DECREASED GLUCOSE; Start 03/22/18 at 19:30 Guaifenesin/ Codeine Phosphate (Robitussin Ac Liquid Cup) 5 ml Q4H PRN PO cough Last administered on 03/24/18at 21:28; Admin Dose 5 ML; Start 03/22/18 at 19:30 Amiodarone HCl 900 mg/Dextrose 500 ml @ 0 mls/hr Q0M IV Last administered on 03/23/18at 23:15; Admin Dose 16.7 MLS/HR; Start 03/23/18 at 01:00 Rivaroxaban (Xarelto) 10 mg WITH DINNER PO Last administered on 03/24/18at 17:16; Admin Dose 10 MG; Start 03/23/18 at 17:55 Digoxin (Digoxin) 0.125 mg DAILY@13 PO Last administered on 03/24/18at 13:19; Admin Dose 0.125 MG; Start 03/24/18 at 13:00 Metformin HCl (Glucophage) 500 mg BID WITH MEALS PO Last administered on 03/25/18at 08:01; Admin Dose 500 MG; Start 03/23/18 at 17:55 Metoprolol Succinate (Toprol Xl) 25 mg BID PO Last administered on 03/25/18at 08:02; Admin Dose 25 MG; Start 03/23/18 at 21:00 Metoprolol Tartrate (Lopressor) 5 mg Q4H PRN IV HR>110 Hold SBP<100; Start 03/23/18 at 17:30 Lisinopril (Zestril) 2.5 mg DAILY PO Last administered on 03/25/18at 08:02; Admin Dose 2.5 MG; Start 03/24/18 at 09:00 Famotidine (Pepcid) 20 mg DAILY PO Last administered on 03/25/18at 08:02; Admin Dose 20 MG; Start 03/24/18 at 17:30 Docusate Sodium (Colace) 100 mg DAILY PRN PO CONSTIPATION Last administered on 03/24/18at 17:53; Admin Dose 100 MG; Start 03/24/18 at 17:30 Insulin Glargine (Lantus) 8 units DAILY@2000 SC Last administered on 03/24/18at 21:35; Admin Dose 8 UNITS; Start 03/24/18 at 20:00 Magnesium Sulfate 3 gm/Dextrose 106 ml @ 35.333 mls/ hr ONCE ONCE IVPB ; Start 03/25/18 at 11:30; Stop 03/25/18 at 14:29 HILLARY PETERS MD Mar 25, 2018 12:10
--- NOTE | 2018-03-25 12:13 | PDOCDIS ---
Discharge Instructions CONDITION [id number] Patient Condition: [id number] Stable HOME CARE INSTRUCTIONS: [id number] Diet Instructions: [id number] y Do not Drive FOLLOW UP/APPOINTMENTS Follow-up Plan appt Primary & cardio 1wk ABRAM COREAS MD Mar 25, 2018 12:13
[2018-03-25] MEDS: GUAIFENESIN/CODEINE 5ML CUP PO PRN (12:35)
[2018-03-25] MEDS: DIGOXIN 0.125 MG TAB PO SCH (12:35)
--- NOTE | 2018-03-25 12:36 | PN ---
Date/Time of Note Date/Time of Note DATE: 03/25/18 TIME: 12:35 Assessment/Plan VTE Prophylaxis Risk score (from Ns)>0 risk: 2 SCD applied (from Ns): No SCD contraindicated: low risk/ambulating Pharmacological prophylaxis: LMWH Lines/Catheters IV Catheter Type (from [facility]): Peripheral IV Urinary Cath still in place: No Assessment/Plan Hospital Course Assessment and plan 1. Acute on chronic A. fib with RVR, stable cont rhythm/rate control 2. Nonadherence, restart anticoagulation if adherence can be obtained 3. Chronic cardiomyopathy, ischemic? Patient for stress test in a.m. 4. Chronic hypertension 5. Type 2 diabetes 6. Anemia 7. Recent bronchitis?. Chest x-ray unremarkable at present Subjective: 03/24 events noted patient feels somewhat better 03/25: cough. no fever Objective: A. fib rate controlled Physical exam No pallor JVD Irregular Clear Benign No edema Result Diagram: 03/25/18 0608 03/25/18 0608 Results 24hrs Laboratory Tests Test 03/24/18 17:14 03/24/18 21:19 03/25/18 06:08 03/25/18 07:46 Bedside Glucose 172 177 168 White Blood Count 15.7 #H Red Blood Count 4.37 L Hemoglobin 13.5 L Hematocrit 40.8 L Mean Corpuscular 93.4 Volume Mean Corpuscular 30.9 Hemoglobin Mean Corpuscular 33.1 Hemoglobin Concent Red Cell 13.2 Distribution Width Platelet Count 202 Mean Platelet Volume 10.8 H Immature 0.500 H Granulocytes % Neutrophils % 78.5 H Lymphocytes % 12.4 L Monocytes % 7.9 Eosinophils % 0.4 Basophils % 0.3 Nucleated Red Blood 0.0 Cells % Immature 0.080 H Granulocytes # Neutrophils # 12.3 H Lymphocytes # 1.9 Monocytes # 1.2 H Eosinophils # 0.1 Basophils # 0.0 Nucleated Red Blood 0.0 Cells # Sodium Level 136 Potassium Level 4.1 Chloride Level 96 L Carbon Dioxide Level 33 H Anion Gap 7 Blood Urea Nitrogen 14 Creatinine 0.73 Est Glomerular > 60 Filtrat Rate mL/min Glucose Level 148 Calcium Level 8.8 Magnesium Level 1.5 L Total Bilirubin 2.0 H Direct Bilirubin 0.00 Indirect Bilirubin 2.0 H Aspartate Amino 43 Transf (AST/SGOT) Alanine 72 H Aminotransferase (AL T/SGPT) Alkaline Phosphatase 93 Troponin I 0.019 Total Protein 7.0 Albumin 3.4 Globulin 3.60 H Albumin/Globulin 0.94 Ratio Digoxin Level 0.7 L Test 03/25/18 11:27 Bedside Glucose 270 H Exam/Review of Systems Vital Signs Vitals Vital Signs Date Temp Pulse Resp B/P (MAP) Pulse Ox O2 O2 Flow FiO2 Time Delivery Rate 03/25/18 90 12:03 03/25/18 98.7 16 116/76 98 Room Air 11:45 (89) 03/22/18 2.0 23:10 Intake and Output 03/24/18 03/24/18 03/25/18 1414:59 22:59 06:59 IntakeIntake Total 750 ml 550 ml BalanceBalance 750 ml 550 ml Medications Medications Current Medications Diagnostic Test (Pha) (Accu-Chek) 1 ea 02 XX ; Start 03/23/18 at 02:00 Insulin Aspart (Novolog Insulin Pen) NOVOLOG *MILD* ALGORITHM WITH MEALS BEDTIME SC Last administered on 03/25/18at 11:28; Admin Dose 4 UNIT; Start at 21:00 Ondansetron HCl (Zofran Inj) 4 mg Q6H PRN IV NAUSEA AND/OR VOMITING; Start 03/22/18 at 19:00 Miscellaneous Information 1 ea NOTE XX ; Start 03/22/18 at 19:30 Glucose (Glutose) 15 gm Q15M PRN PO DECREASED GLUCOSE; Start 03/22/18 at 19:30 Glucose (Glutose) 22.5 gm Q15M PRN PO DECREASED GLUCOSE; Start 03/22/18 at 19:30 Dextrose (D50w Syringe) 25 ml Q15M PRN IV DECREASED GLUCOSE; Start 03/22/18 at 19:30 Dextrose (D50w Syringe) 50 ml Q15M PRN IV DECREASED GLUCOSE; Start 03/22/18 at 19:30 Glucagon (Glucagen) 1 mg Q15M PRN IM DECREASED GLUCOSE; Start 03/22/18 at 19:30 Glucose (Glutose) 15 gm Q15M PRN BUCCAL DECREASED GLUCOSE; Start 03/22/18 at 19:30 Guaifenesin/ Codeine Phosphate (Robitussin Ac Liquid Cup) 5 ml Q4H PRN PO cough Last administered on 03/24/18at 21:28; Admin Dose 5 ML; Start 03/22/18 at 19:30 Amiodarone HCl 900 mg/Dextrose 500 ml @ 0 mls/hr Q0M IV Last administered on 03/23/18at 23:15; Admin Dose 16.7 MLS/HR; Start 03/23/18 at 01:00 Rivaroxaban (Xarelto) 10 mg WITH DINNER PO Last administered on 03/24/18at 17:16; Admin Dose 10 MG; Start 03/23/18 at 17:55 Digoxin (Digoxin) 0.125 mg DAILY@13 PO Last administered on 03/24/18 13:19; Admin Dose 0.125 MG; Start 03/24/18 at 13:00 Metformin HCl (Glucophage) 500 mg BID WITH MEALS PO Last administered on 03/25/18at 08:01; Admin Dose 500 MG; Start 03/23/18 at 17:55 Metoprolol Succinate (Toprol Xl) 25 mg BID PO Last administered on 03/25/18 08:02; Admin Dose 25 MG; Start 03/23/18 at 21:00 Metoprolol Tartrate (Lopressor) 5 mg Q4H PRN IV HR>110 Hold SBP<100; Start 03/23/18 at 17:30 Lisinopril (Zestril) 2.5 mg DAILY PO Last administered on 03/25/18at 08:02; Admin Dose 2.5 MG; Start 03/24/18 at 09:00 Famotidine (Pepcid) 20 mg DAILY PO Last administered on 03/25/18at 08:02; Admin Dose 20 MG; Start 03/24/18 at 17:30 Docusate Sodium (Colace) 100 mg DAILY PRN PO CONSTIPATION Last administered on 03/24/18at 17:53; Admin Dose 100 MG; Start 03/24/18 at 17:30 Insulin Glargine (Lantus) 8 units DAILY@2000 SC Last administered on 03/24/18at 21:35; Admin Dose 8 UNITS; Start 03/24/18 at 20:00 Magnesium Sulfate 3 gm/Dextrose 106 ml @ 35.333 mls/ hr ONCE ONCE IVPB ; Start 03/25/18 at 11:30; Stop 03/25/18 at 14:29 ABRAM COREAS MD Mar 25, 2018 12:36
[2018-03-25] MEDS ORDERED: MAGNESIUM OXIDE 400 MG TAB PO SCH (13:00)
[2018-03-25] MEDS: RIVAROXABAN 10 MG TABLET PO SCH (17:28)
[2018-03-25] MEDS: INSULIN GLARGINE [LANTus] (100 UNITS/ML) SYG SC SCH (22:09)
[2018-03-25] MEDS: HYDROCODONE/HOMATROPINE 5ML CUP PO PRN (22:15)
[2018-03-26] VITALS (10 sets, daily range): BP systolic 100–131; BP diastolic 63–87; PULSE 51–92; RESP 18
[2018-03-26] MEDS: METOPROLOL (XL) 25 MG TAB PO SCH ×3 (00:47→21:00)
[2018-03-26] MEDS: ACCU-CHEK XX SCH (02:00)
[2018-03-26] MEDS: INSULIN ASPART [NOVOLOG] 3 ML PEN SC SCH ×4 (07:55→21:00)
[2018-03-26] MEDS: metFORMIN 500 MG TAB PO SCH ×2 (07:55→17:35)
[2018-03-26] MEDS: FAMOTIDINE 20 MG TAB PO SCH (08:28)
[2018-03-26] MEDS: LISINOPRIL 5 MG TAB PO SCH (08:28)
[2018-03-26] MEDS ORDERED: REGADENOSON 0.4 MG/5 ML SYG ONE (09:07)
--- NOTE | 2018-03-26 09:44 | CONS ---
Date/Time of Note Date/Time of Note DATE: 03/26/18 TIME: 09:42 Assessment/Plan Assessment/Plan Assessment/Plan 1. Atrial fibrillation with rapid ventricular response - in a. fib now - rate controlled - will monitor clinically. BETTER now. 2. Chest pain in the setting of atrial fibrillation and rapid rate response- no CP now. No recent re-stratification - gutierrez facilitate stress test when pt is able to lay flat. STRESS TEST DONE - will await for results. 3. Congestive heart failure, systolic, likely acute on chronic- con't diuresis - better now. Responed. Better now. 4. History of cardiomyopathy with severely depressed left ventricular ejection fraction, last EF is 25% by echo in 2017 - improved fluid status. Con't gentle diuresis. 5. Elevated blood glucose, diabetes. There is increased BNP.Still high - insulin Rx. Result Diagram: 03/26/18 0532 03/26/18 0532 Results 24hrs Laboratory Tests Test 03/25/18 11:27 03/25/18 17:28 03/25/18 21:52 03/26/18 02:41 Bedside Glucose 270 H 117 241 H 185 Test 03/26/18 05:32 03/26/18 08:24 White Blood Count 13.7 H Red Blood Count 4.44 L Hemoglobin 13.7 L Hematocrit 41.7 L Mean Corpuscular 93.9 Volume Mean Corpuscular 30.9 Hemoglobin Mean Corpuscular 32.9 Hemoglobin Concent Red Cell 12.9 Distribution Width Platelet Count 182 Mean Platelet Volume 10.7 H Immature 0.500 H Granulocytes % Neutrophils % 76.3 Lymphocytes % 12.8 L Monocytes % 9.3 Eosinophils % 0.7 Basophils % 0.4 Nucleated Red Blood 0.0 Cells % Immature 0.070 H Granulocytes # Neutrophils # 10.4 H Lymphocytes # 1.8 Monocytes # 1.3 H Eosinophils # 0.1 Basophils # 0.1 Nucleated Red Blood 0.0 Cells # Prothrombin Time 18.2 #H Prothrombin Time 1.4 Ratio INR International 1.50 Normalized Ratio Sodium Level 134 L Potassium Level 4.1 Chloride Level 98 Carbon Dioxide Level 29 Anion Gap 7 Blood Urea Nitrogen 14 Creatinine 0.69 Est Glomerular > 60 Filtrat Rate mL/min Glucose Level 168 Calcium Level 8.6 Magnesium Level 1.8 Total Bilirubin 1.6 H Direct Bilirubin 0.00 Indirect Bilirubin 1.6 H Aspartate Amino 32 Transf (AST/SGOT) Alanine 55 Aminotransferase (AL T/SGPT) Alkaline Phosphatase 101 Total Protein 7.0 Albumin 3.3 Globulin 3.70 H Albumin/Globulin 0.89 Ratio Bedside Glucose 131 Consultation Date/Type/Reason Admit Date/Time Mar 22, 2018 at 18:27 Initial Consult Date 24 HR Interval Summary Free Text/Dictation STRESS TEST DONE - will await for results. ROS: No fever, no chills, no nausea, no vomiting, no diarrhea/constipation No recent weight changes No chest pain, no PND, no orthopnea - improved SOB. No dizziness, blurred vision No thirst, no heat or cold intolerance Exam/Review of Systems Vital Signs Vitals Vital Signs Date Temp Pulse Resp B/P (MAP) Pulse Ox O2 O2 Flow FiO2 Time Delivery Rate 03/26/18 84 08:01 03/26/18 98.2 18 110/87 95 07:21 (95) 03/25/18 Room Air 16:09 03/22/18 2.0 23:10 Intake and Output 03/25/18 03/25/18 03/26/18 1515:00 23:00 07:00 IntakeIntake Total 1200 ml 750 ml BalanceBalance 1200 ml 750 ml Exam General: WN/WD/NAD, AOx 3 HEENT: Unicetric/atraumatic/EOMI (follows commands) NECK: JVD elevated, no thyromegaly Lymph: no lymphadenopathy HEART: irregular with no S3, II/ systolic murmur at apex LUNGS: Coarse sounds ABD: soft, NT, ND, +BS : Intact Neuro: non focal SKIN: chronic changes EXT: IMPROVED edema Medications Medications Current Medications Diagnostic Test (Pha) (Accu-Chek) 1 ea 02 XX ; Start 03/23/18 at 02:00 Insulin Aspart (Novolog Insulin Pen) NOVOLOG *MILD* ALGORITHM WITH MEALS BEDTIME SC Last administered on 03/25/18at 22:10; Admin Dose 2 UNIT; Start 03/22/18 at 21:00 Ondansetron HCl (Zofran Inj) 4 mg Q6H PRN IV NAUSEA AND/OR VOMITING; Start 03/22/18 at 19:00 Miscellaneous Information 1 ea NOTE XX ; Start 03/22/18 at 19:30 Glucose (Glutose) 15 gm Q15M PRN PO DECREASED GLUCOSE; Start 03/22/18 at 19:30 Glucose (Glutose) 22.5 gm Q15M PRN PO DECREASED GLUCOSE; Start 03/22/18 at 19:30 Dextrose (D50w Syringe) 25 ml Q15M PRN IV DECREASED GLUCOSE; Start 03/22/18 at 19:30 Dextrose (D50w Syringe) 50 ml Q15M PRN IV DECREASED GLUCOSE; Start 03/22/18 at 19:30 Glucagon (Glucagen) 1 mg Q15M PRN IM DECREASED GLUCOSE; Start 03/22/18 at 19:30 Glucose (Glutose) 15 gm Q15M PRN BUCCAL DECREASED GLUCOSE; Start 03/22/18 at 19:30 Guaifenesin/ Codeine Phosphate (Robitussin Ac Liquid Cup) 5 ml Q4H PRN PO cough Last administered on 03/25/18at 12:35; Admin Dose 5 ML; Start 03/22/18 at 19:30 Amiodarone HCl 900 mg/Dextrose 500 ml @ 0 mls/hr Q0M IV Last administered on 03/23/18at 23:15; Admin Dose 16.7 MLS/HR; Start 03/23/18 at 01:00 Rivaroxaban (Xarelto) 10 mg WITH DINNER PO Last administered on 03/25/18at 17:28; Admin Dose 10 MG; Start 03/23/18 at 17:55 Digoxin (Digoxin) 0.125 mg DAILY@13 PO Last administered on 03/25/18at 12:35; Admin Dose 0.125 MG; Start 03/24/18 at 13:00 Metformin HCl (Glucophage) 500 mg BID WITH MEALS PO Last administered on 03/25/18at 17:32; Admin Dose 500 MG; Start 03/23/18 at 17:55 Metoprolol Succinate (Toprol Xl) 25 mg BID PO Last administered on 03/26/18at 08:27; Admin Dose 25 MG; Start 03/23/18 at 21:00 Metoprolol Tartrate (Lopressor) 5 mg Q4H PRN IV HR>110 Hold SBP<100; Start 03/23/18 at 17:30 Lisinopril (Zestril) 2.5 mg DAILY PO Last administered on 03/26/18at 08:28; Admin Dose 2.5 MG; Start 1/19/19 at 09:00 Famotidine (Pepcid) 20 mg DAILY PO Last administered on 03/26/18 08:28; Admin Dose 20 MG; Start 03/24/18 at 17:30 Docusate Sodium (Colace) 100 mg DAILY PRN PO CONSTIPATION Last administered on 03/24/18at 17:53; Admin Dose 100 MG; Start 03/24/18 at 17:30 Insulin Glargine (Lantus) 4 units DAILY@2000 SC Last administered on 03/25/18at 22:09; Admin Dose 4 UNITS; Start 03/25/18 at 20:00 Hydrocodone Bit/ Homatropine Methylb (Hycodan Liquid) 10 ml Q6H PRN PO COUGH Last administered on 03/25/18at 22:15; Admin Dose 10 ML; Start 03/25/18 at 13:00 HILLARY PETERS MD Mar 26, 2018 09:44
[2018-03-26] MEDS: DIGOXIN 0.125 MG TAB PO SCH (13:33)
[2018-03-26] MEDS: HYDROCODONE/HOMATROPINE 5ML CUP PO PRN (13:41)
--- NOTE | 2018-03-26 14:12 | ECORPT ---
DATE OF SERVICE: 03/26/2018 REASON FOR EVALUATION: Reduced ejection fraction. DESCRIPTION OF PROCEDURE: The patient was brought into chemical laboratory chief in fasting state. He had successful Lexiscan injection. He is in atrial fibrillation. Blood pressure is stable at 103/69. The imaging portion will be dictated separately. Dictated By: HILLARY PETERS MD ML/NTS Conf#: [id number] DID#: [id number] CC: ABRAM COREAS MD; SALINA WASSERMAN MD;*EndCC*
[2018-03-26] MEDS: RIVAROXABAN 10 MG TABLET PO SCH (17:35)
--- NOTE | 2018-03-26 17:57 | DS ---
Date/Time of Note Date/Time of Note DATE: 03/26/18 TIME: 17:53 Discharge Summary Admission/Discharge Info Admit Date/Time Mar 22, 2018 at 18:27 Discharge Date/Time Patient Condition: Good Consults Dr Jang Procedures CXR#2 FINDINGS: The lungs are clear of acute infiltrates, edema, effusions, or masses. Calcific atherosclerosis of the aorta is present.. Cardiomegaly is unchanged.. The osseous structures are intact. IMPRESSION: No acute cardiopulmonary disease. Cardiomegaly with calcified aorta. .Marlo Grigsby MD, MD Date Time 2D ECHO Conclusions Normal left ventricular cavity size. Normal left ventricular wall thickness. Severe global left ventricular systolic dysfunction. Ejection fraction is visually estimated at 30 %. Normal appearance of the mitral valve. Mild mitral valve regurgitation. Normal appearance of the aortic valve. Normal appearance of the tricuspid valve. Estimated peak PA systolic pressure STRESS TEST Lexiscan myocardial perfusion study CLINICAL INDICATION: 62 -year-old patient complaining of chest pain. TECHNIQUE: Lexiscan 0.4 mg intravenously separate acquisition gated myocardial perfusion SPECT using Tc 99m Myoview 30.0 mCi intravenously at stress and Tc-99m Myoview, 10.0 mCi intravenously at rest was performed using the rest/stress sequence. Poststress Myoview SPECT images were obtained in the supine position. COMPARISON: No prior studies. FINDINGS: Perfusion images reveal mild nonreversible perfusion defect in the inferior wall. Lexiscan post stress gated SPECT images demonstrate moderate hypokinesis of the left ventricle. IMPRESSION: 1. No evidence of stress-induced ischemia. 2. Moderate hypokinesis of the left ventricle. 3. The left ventricle ejection fraction at stress is 33%. Hx of Present Illness 62-year-old gentleman admitted with palpitations A. fib RVR in the ER Hospital Course Hospital course Admitted and treated for palpitations. A. fib RVR. Initially rhythm control. Presently stable and fit for discharge. Due to his EF of 35, stress test was done. No evidence of ischemia. Patient may follow-up with cardiology in 2 weeks.additionally going through bronchitis. Repeat cxr does not show any acute process. Supportive care. Influenza testing & Troponins negative. T Bili a tad bit high, but incidental/asymptomatic, may follow-up as needed as outpatient. Assessment and plan 1. Acute on chronic A. fib with RVR, stable cont rhythm/rate control 2. Nonadherence, restart anticoagulation if adherence can be obtained 3. Chronic cardiomyopathy, ischemic? sp stress test 4. Chronic hypertension 5. Type 2 diabetes 6. Anemia 7. Recent bronchitis. Chest x-ray unremarkable at present Subjective: 03/24 events noted patient feels somewhat better 03/25: cough. no fever 03/26: No events Home Meds Reported Medications Dulaglutide (Trulicity) Unknown Strength Pen.injctr, 1 DOSE SQ Q MON 03/22/18 Lisinopril* (Lisinopril*) 5 Mg Tablet, 5 MG PO DAILY, #30 TAB 03/22/18 Discontinued Scripts Guaifenesin-Codeine Phosphate* (Robitussin* AC) 5 Ml Syrup, 5 ML PO Q6H PRN for COUGH, #8 OZ Prov:REGVADIM REYNOSO 03/15/16 Azithromycin* (Zithromax* Tri-Romeo) 500 Mg Tablet, 500 MG PO DAILY for 3 Days, TAB Prov:REGVADIM REYNOSO 03/15/16 Metoprolol Succinate* (Toprol XL*) 100 Mg Tab.sr.24h, 100 MG PO DAILY, #30 TAB Prov:REGVADIM REYNOSO 03/15/16 Lisinopril* (Lisinopril*) 2.5 Mg Tablet, 2.5 MG PO DAILY, #30 TAB Prov:REGVADIM REYONSO 03/15/16 Apixaban* (Eliquis*) 5 Mg Tablet, 5 MG PO BID for 30 Days, TAB Prov:REGIDOVADIM Gonzalez 03/14/16 Potassium Chloride* (Potassium Chloride*) 20 Meq Tablet.er, 10 MEQ PO DAILY for 30 Days, TAB.SA Prov:REGVADIM REYNOSO 03/14/16 Furosemide* (Lasix*) 40 Mg Tablet, 40 MG PO DAILY for 30 Days, TAB Prov:REGVADIM REYNOSO 03/14/16 Diltiazem Hcl* (Cardizem*) 30 Mg Tablet, 30 MG PO Q6 for 30 Days, TAB Prov:REGVADIM REYNOSO 03/13/16 Metformin Hcl* (Metformin Hcl*) 500 Mg Tablet, 500 MG PO WITH BREAKFAST DINNE, #60 TAB Prov:VADIM GRAVES 03/13/16 Follow-up Plan appt Primary & cardio 1wk Primary Care Provider [facility] Time spent on discharge: > 30 minutes Pending Labs Laboratory Tests Test 03/25/18 21:52 03/26/18 02:41 03/26/18 05:32 03/26/18 08:24 Bedside 241 185 131 Glucose mg/dL (70-220) mg/dL (70-220) mg/dL (70-220) White Blood 13.7 Count 10^3/ul (4.8-1 0.8) Red Blood 4.44 Count 10^6/ul (4.70- 6.10) Hemoglobin 13.7 g/dl (14.0-18. 0) Hematocrit 41.7 % (42.0-52.0) Mean 93.9 Corpuscular fl (82.0-101.0 Volume ) Mean 30.9 Corpuscular pg (29.0-33.0) Hemoglobin Mean 32.9 Corpuscular g/dl (32.0-37. Hemoglobin Conc 0) ent Red Cell 12.9 Distribution % (11.5-14.5) Width Platelet Count 182 10^3/UL (140-4 15) Mean Platelet 10.7 Volume fl (7.4-10.4) Immature 0.500 Granulocytes % % (0.001-0.429 ) Neutrophils % 76.3 % (39.0-77.0) Lymphocytes % 12.8 % (15.0-51.0) Monocytes % 9.3 % (0.0-11.0) Eosinophils % 0.7 % (0.0-7.0) Basophils % 0.4 % (0.0-2.0) Nucleated Red 0.0 Blood Cells % /100WBC (0.0-0 .0) Immature 0.070 Granulocytes # 10^3/ul (0.0-0 .031) Neutrophils # 10.4 10^3/ul (1.6-7 .5) Lymphocytes # 1.8 10^3/ul (0.8-2 .9) Monocytes # 1.3 10^3/ul (0.3-0 .9) Eosinophils # 0.1 10^3/ul (0.0-0 .5) Basophils # 0.1 10^3/ul (0.0-0 .1) Nucleated Red 0.0 Blood Cells # 10^3/ul (0.0-0 .0) Prothrombin 18.2 Time Sec (11.9-14.9 ) Prothrombin 1.4 Time Ratio INR 1.50 International Normalized Rati o Sodium Level 134 mmol/L (135-14 4) Potassium 4.1 Level mmol/L (3.5-5. 1) Chloride Level 98 mmol/L (97-110 ) Carbon Dioxide 29 Level mmol/L (21-31) Anion Gap 7 (5-13) Blood Urea 14 Nitrogen mg/dl (7-20) Creatinine 0.69 mg/dl (0.61-1. 24) Est Glomerular > 60 Filtrat mL/min (>60) Rate mL/min Glucose Level 168 mg/dl (70-220) Calcium Level 8.6 mg/dl (8.4-10. 2) Magnesium 1.8 Level mg/dl (1.7-2.5 ) Total 1.6 Bilirubin mg/dl (0.2-1.3 ) Direct 0.00 Bilirubin mg/dl (0.00-0. 20) Indirect 1.6 Bilirubin mg/dl (0-1.1) Aspartate Amino 32 Transf (AST/SGO IU/L (15-46) T) Alanine 55 Aminotransferas IU/L (13-69) e (ALT/SGPT) Alkaline 101 Phosphatase IU/L (42-121) Total Protein 7.0 g/dl (6.1-8.1) Albumin 3.3 g/dl (3.3-4.9) Globulin 3.70 g/dl (1.3-3.2) Albumin/Globuli 0.89 n Ratio Test 03/26/18 11:22 03/26/18 17:33 Bedside 128 132 Glucose mg/dL (70-220) mg/dL (70-220) ABRAM COREAS MD Mar 26, 2018 17:57
[2018-03-26] MEDS ORDERED: LISI-313 PO (18:02)
[2018-03-26] MEDS ORDERED: GUAI5SYR2 PO (18:02)
[2018-03-26] MEDS ORDERED: DIGO125T PO (18:02)
[2018-03-26] MEDS ORDERED: METO-335 PO (18:02)
[2018-03-26] MEDS ORDERED: RIVA10TA PO (18:02)
[2018-03-26] MEDS: INSULIN GLARGINE [LANTus] (100 UNITS/ML) SYG SC SCH (20:00)
[2018-03-26] MEDS: GUAIFENESIN/CODEINE 5ML CUP PO PRN (20:07)
== END 2018-03-26 21:48 | disposition home or self-care (01) | DRG 308 ==
LOC: EEVIPCON 16:37 → E/R 16:37 → TEL 18:27
PROVIDERS: ADMIT Internal Medicine; ATTEND Internal Medicine
DX: I48.2 Chronic atrial fibrillation (principal); I50.23 Acute on chronic systolic (congestive) heart failure; I11.0 Hypertensive heart disease with heart failure; I42.9 Cardiomyopathy, unspecified; E11.9 Type 2 diabetes mellitus without complications; J20.9 Acute bronchitis, unspecified; Z91.14 Patient's other noncompliance with medication regimen; Z79.01 Long term (current) use of anticoagulants; Z79.4 Long term (current) use of insulin; Z79.84 Long term (current) use of oral hypoglycemic drugs
CPT/HCPCS: 36415; 71045; 78452; 80048; 80053; 80061; 80162; 82550; 82553; 82962; 83036; 83735; 83880; 84443; 84484; 85025; 85610; 85730; 87400; 93005; 93017; 93306; 96374; 96375; A9500; A9505; J0282; J1815; J2785; J3475; J7060